=== PATIENT | female | born 1985 | race Caucasian/White ===

== ENCOUNTER → 2020-05-01 14:56 | Outpatient (BNVA) | payer OTHER, SELFPAY | PROVIDERS: PCP Internal Medicine; Visit Provider Advanced Practice Midwife | DX: Z30.42 Encounter for surveillance of injectable contraceptive (principal) | CPT/HCPCS: 96372; 99211; J1050 ==

== ENCOUNTER → 2020-07-24 15:09 | Outpatient (BNVA) | payer OTHER, SELFPAY | PROVIDERS: PCP Internal Medicine; Visit Provider Advanced Practice Midwife | DX: Z01.419 Encounter for gynecological examination (general) (routine) without abnormal findings (principal); Z30.42 Encounter for surveillance of injectable contraceptive; L70.9 Acne, unspecified | CPT/HCPCS: 96372 ==

== ENCOUNTER → 2020-10-09 15:04 | Outpatient (BNVA) | payer OTHER, SELFPAY | PROVIDERS: PCP Internal Medicine; Visit Provider Advanced Practice Midwife | DX: Z30.42 Encounter for surveillance of injectable contraceptive (principal) | CPT/HCPCS: 96372; 99211; J1050 ==

== ENCOUNTER → 2021-01-01 14:58 | Outpatient (BNVA) | payer OTHER, SELFPAY | PROVIDERS: PCP Internal Medicine; Visit Provider Advanced Practice Midwife | DX: Z30.42 Encounter for surveillance of injectable contraceptive (principal) | CPT/HCPCS: 96372; 99211 ==

== ENCOUNTER 2021-01-13 15:46 | Outpatient (REF) | payer OTHER, SELFPAY ==
[2021-01-13 16:21] LABS: COVID-19 Test Negative (Negative); IDNOW Serial# 08D9AD1C
== END 2021-01-13 15:47 | disposition home or self-care (01) ==
LOC: HO.LAB 15:46
PROVIDERS: PCP Internal Medicine; Visit Provider Internal Medicine
DX: Z20.822 Contact with and (suspected) exposure to COVID-19 (principal)
CPT/HCPCS: 36415; 87635; C9803

== ENCOUNTER 2021-03-17 14:49 | Outpatient (REF) | payer OTHER, SELFPAY ==
[2021-03-17 15:45] LABS: COVID-19 Test Negative (Negative)
== END 2021-03-17 14:50 | disposition home or self-care (01) ==
LOC: HO.LAB 14:49
PROVIDERS: PCP Internal Medicine; Visit Provider Internal Medicine
DX: Z20.822 Contact with and (suspected) exposure to COVID-19 (principal)
CPT/HCPCS: 36415; 87635; C9803

== ENCOUNTER → 2021-03-26 15:00 | Outpatient (BNVA) | payer OTHER, SELFPAY | PROVIDERS: PCP Internal Medicine; Visit Provider Advanced Practice Midwife | DX: Z30.42 Encounter for surveillance of injectable contraceptive (principal) | CPT/HCPCS: 96372; 99211 ==

== ENCOUNTER → 2021-06-11 14:56 | Outpatient (BNVA) | payer OTHER, SELFPAY | PROVIDERS: PCP Internal Medicine; Visit Provider Advanced Practice Midwife | DX: Z30.42 Encounter for surveillance of injectable contraceptive (principal) | CPT/HCPCS: 96372; 99211 ==

== ENCOUNTER → 2021-09-03 14:21 | Outpatient (BNVA) | payer OTHER, SELFPAY | PROVIDERS: PCP Internal Medicine; Visit Provider Advanced Practice Midwife | DX: Z30.42 Encounter for surveillance of injectable contraceptive (principal) | CPT/HCPCS: 96372 ==

== ENCOUNTER → 2021-12-03 13:00 | Outpatient (BNVA) | payer OTHER, SELFPAY | PROVIDERS: PCP Internal Medicine; Visit Provider Advanced Practice Midwife | DX: Z30.42 Encounter for surveillance of injectable contraceptive (principal) | CPT/HCPCS: 96372; 99211 ==

== ENCOUNTER 2022-02-25 10:30 | Outpatient (REF) | payer OTHER, SELFPAY ==
[2022-02-25 10:45] LABS: MANUAL DIFF FLAG NO
[2022-02-25 11:41] LABS: Basophils Percent Auto 0.7 % (0-2); Eosinophils Absolute Auto 0.3 X10*3/uL (0.0-0.4); Eosinophils Percent Auto 4.7 % (0-4); Hematocrit 44.1 % (37.0-47.0); Hemoglobin 14.2 g/dl (12.0-16.0); Imm Gran Abs Auto 0.02 X10*3/uL (0.00-0.03); Imm Gran Pct Auto 0.4 % (0.0-0.4); Lymphocytes Absolute Auto 1.7 X10*3/uL (1.2-4.9); Lymphocytes Percent Auto 30.7 % (20-40); Mean Corpuscular HGB Conc 32.2 g/dl (31.0-35.0); Mean Corpuscular Hemoglobin 29.3 pg (27.0-33.0); Mean Corpuscular Volume 90.9 fL (80.0-98.0); Mean Platelet Volume 9.8 fL (9.4-12.3); Monocytes Absolute Auto 0.5 X10*3/uL (0.1-1.2); Monocytes Percent Auto 9.2 % (2-11); Neutrophils Percent Auto 54.3 % (45-73); Platelet Count 288 X10*3/uL (160-400); Red Blood Count 4.85 X10*6/uL (4.20-5.50); Red Cell Distribution Width 13.2 % (11.0-16.0); White Blood Count 5.5 X10*3/uL (4.8-10.8)
[2022-02-25 12:36] LABS: Thyroid Stimulating Hormone 0.96 uIU/mL (0.32-4.0)
[2022-02-25 12:39] LABS: Alanine Aminotransferase 8 U/L (0-31); Albumin Level 4.1 g/dL (3.5-5.0); Alkaline Phosphatase 94 U/L (39-117); Aspartate Amino Transferase 17 U/L (5-31); Bilirubin Total 0.2 mg/dL (0.0-1.0); Blood Urea Nitrogen 12 mg/dL (9-16); Calcium 8.7 mg/dL (8.4-10.2); Cholesterol 174 mg/dL; Estimated Glomerular Filt Rate > 60; Glucose Fasting 85 mg/dL (60-99); HDL Cholesterol 39 mg/dL; LDL Cholesterol Calculated 124 mg/dl; Total Protein 6.6 g/dL (6.5-8.0); Triglycerides 55 mg/dL
[2022-02-25 12:50] LABS: Anion Gap 15 (12-20); Carbon Dioxide 15 mmol/L (22-29); Chloride 116 mmol/L (96-108); Potassium 4.3 mmol/L (3.3-5.1); Sodium 142 mmol/L (135-145)
== END 2022-02-25 10:31 | disposition home or self-care (01) ==
LOC: HO.LAB 10:30
PROVIDERS: PCP Internal Medicine; Visit Provider Internal Medicine
DX: Z30.42 Encounter for surveillance of injectable contraceptive (principal); E03.9 Hypothyroidism, unspecified; E78.5 Hyperlipidemia, unspecified; I10 Essential (primary) hypertension
CPT/HCPCS: 36415; 80053; 80061; 84443; 85025; 96372; 99211

== ENCOUNTER → 2022-05-24 13:06 | Outpatient (BNVA) | payer OTHER, SELFPAY | PROVIDERS: PCP Internal Medicine; Visit Provider Advanced Practice Midwife | DX: Z30.42 Encounter for surveillance of injectable contraceptive (principal) | CPT/HCPCS: 96372; 99211 ==

== ENCOUNTER → 2022-08-12 13:03 | Outpatient (BNVA) | payer OTHER, SELFPAY | PROVIDERS: PCP Internal Medicine; Visit Provider Advanced Practice Midwife | DX: Z30.42 Encounter for surveillance of injectable contraceptive (principal) | CPT/HCPCS: 96372; 99211 ==

== ENCOUNTER → 2022-09-06 15:07 | Outpatient (BNVA) | payer OTHER, SELFPAY | PROVIDERS: PCP Internal Medicine; Visit Provider Advanced Practice Midwife | DX: Z30.42 Encounter for surveillance of injectable contraceptive (principal); Z30.09 Encounter for other general counseling and advice on contraception; Z01.419 Encounter for gynecological examination (general) (routine) without abnormal findings | CPT/HCPCS: 99212 ==

== ENCOUNTER → 2022-10-28 13:44 | Outpatient (BNVA) | payer OTHER, SELFPAY | PROVIDERS: PCP Internal Medicine; Visit Provider Advanced Practice Midwife | DX: Z30.42 Encounter for surveillance of injectable contraceptive (principal) | CPT/HCPCS: 96372; 99211 ==

== ENCOUNTER 2023-01-18 12:57 | Outpatient (AMB) | payer OTHER, SELFPAY ==
[2023-01-18 13:10] VITALS: BMI 29.4
--- NOTE | 2023-01-18 13:10 | AM.OFFVISNUR ---
Intake Vital Signs 01/18/23 13:10 Height 5 ft 2 in Weight 72.802 kg BMI 29.4 Intake Visit Reasons: DEPO Allergies Seasonal Allergies Allergy (Mild, Verified 09/06/22 15:12) Sniffles. risperidone [From Risperdal] Adverse Reaction (Mild, Verified 09/06/22 15:12) CHANGES HER PERSONALITY Nursing Note car is here with her mother today for her scheduled Depo-Provera inj. Mom reports Car gets acne breakout few wks prior to her Depo-Provera shot. No other problems or concerns. Follow up in 12 wks. Office Procedures Depo Questionnaire If YES to any of the following questions, please consult a provider. Date of last injection: 10/28/22 Date of last gynecology exam: 09/11/22 Menstrual pattern since last injection has been: Not Applicable Irregular bleeding?: No Breast lumps or other breast changes?: No Changes in weight or appetite?: No Depression or changes in mood?: No Abnormal hair growth or loss?: No Skin problems (rash, acne, discoloration)?: Yes (Pt gets acne only when Depo is due.) Pain at the injection site?: No Headaches?: No Nervousness?: No Abdominal pain or cramping?: No Dizziness or nausea?: No Fatigue or weakness?: No Decrease in sexual drive?: Not Applicable Chest pain or shortness of breath?: No Swelling in arms or legs?: No Form completed by?: Arabella Bartholomew LPN Office Meds Depo-Provera Performing Provider: Mala Taylor CNM Administered by: Lizzeth Bartholomew LPN on 01/18/23 13:12 Dose Route Admin Location Lot Number Expiration Date [employer] Architect Consultant 150 mg IM rt. deltoid [id number] 02/18/25 00578-216-09 [facility] Coding Level of Care Code Established Pt Est Pt Level 1 (55202) Patient Type Established History Problem Focused Exam Problem Focused Medical Decision Making Straight Forward Diagnoses Time Spent (min) 20 Assessment & Plan Assessment & Plan Orders: Orders AMB Medroxyprogesterone Injection Patient Supplied Today Z30.42 - Encounter for surveillance of injectable contraceptive
== END 2023-01-18 13:08 | disposition home or self-care (01) ==
PROVIDERS: PCP Internal Medicine; Visit Provider Advanced Practice Midwife
DX: Z30.42 Encounter for surveillance of injectable contraceptive (principal)

== ENCOUNTER → 2023-01-18 12:57 | Outpatient (BNVA) | payer OTHER, SELFPAY | PROVIDERS: PCP Internal Medicine; Visit Provider Advanced Practice Midwife | DX: Z30.42 Encounter for surveillance of injectable contraceptive (principal) | CPT/HCPCS: 96372; 99211; J1050 ==

== ENCOUNTER 2023-04-12 11:07 | Outpatient (AMB) | payer OTHER, SELFPAY ==
[2023-04-12 11:11] VITALS: BMI 29.7
--- NOTE | 2023-04-12 11:11 | AM.OFFVISNUR ---
Intake Vital Signs 04/12/23 11:11 Height 5 ft 2 in Weight 73.624 kg BMI 29.7 Intake Visit Reasons: DEPO Allergies Seasonal Allergies Allergy (Mild, Verified 09/06/22 15:12) Sniffles. risperidone [From Risperdal] Adverse Reaction (Mild, Verified 09/06/22 15:12) CHANGES HER PERSONALITY Nursing Note Agata is here with her father for her Depo-Provera inj as scheduled. Pt is non-verbal Autistic. Her father reports Agata has been breaking out on her face recently and they are not sure if Depo-Provera related. Message will be sent to provider regarding this issue and pts parents will be notified. Office Procedures Depo Questionnaire If YES to any of the following questions, please consult a provider. Date of last injection: 01/18/23 Date of last gynecology exam: 09/09/22 Menstrual pattern since last injection has been: Not Applicable Irregular bleeding?: No Breast lumps or other breast changes?: No Changes in weight or appetite?: No Depression or changes in mood?: No Abnormal hair growth or loss?: No Skin problems (rash, acne, discoloration)?: Yes (more acne recently. Her father not sure if related to Depo-Provera.) Pain at the injection site?: No Headaches?: No Nervousness?: No Abdominal pain or cramping?: No Dizziness or nausea?: No Fatigue or weakness?: No Decrease in sexual drive?: No Chest pain or shortness of breath?: No Swelling in arms or legs?: No Any other problems or concerns?: no Form completed by?: Arabella Bartholomew LPN Office Meds Depo-Provera 150 mg/mL intramuscular syringe Performing Provider: Mala Taylor CNM Performing Location: [facility] – [place] [facility] Administered by: Lizzeth Bartholomew LPN on 04/12/23 11:12 Dose Route Admin Location Dispensed Lot Number Expiration Date [facility] Supervisor Tower 150 mg IM rt. deltoid 1 mL [id number] 03/21/25 51445-616-62 [facility] Coding Level of Care Code Established Pt Est Pt Level 1 (32313) Patient Type Established History Problem Focused Exam Problem Focused Medical Decision Making Straight Forward Time Spent (min) 20 Assessment & Plan Assessment & Plan Orders: Orders AMB Medroxyprogesterone Injection Patient Supplied Today Z30.42 - Encounter for surveillance of injectable contraceptive
== END 2023-04-12 11:08 | disposition home or self-care (01) ==
LOC: HO.HWS 11:07
PROVIDERS: PCP Internal Medicine; Visit Provider Advanced Practice Midwife
DX: Z30.42 Encounter for surveillance of injectable contraceptive (principal)

== ENCOUNTER → 2023-04-12 11:07 | Outpatient (BNVA) | payer OTHER, SELFPAY | PROVIDERS: PCP Internal Medicine; Visit Provider Advanced Practice Midwife | DX: Z30.42 Encounter for surveillance of injectable contraceptive (principal) | CPT/HCPCS: 96372; 99211; J1050 ==

== ENCOUNTER 2023-04-28 13:38 | Outpatient (AMB) | payer OTHER, SELFPAY ==
[2023-04-28 13:40] VITALS: BP 136/70; PULSE 65; O2SAT 97; BMI 29.3
--- NOTE | 2023-04-28 13:40 | MHC.PC.OV ---
Vital Signs 04/28/23 13:40 Height 5 ft 2 in Weight 160 lb BMI 29.3 BP 136/70 Blood Pressure Location Lt brachial Position Sitting Pulse 65 Pulse Source Pulse Oximeter Pulse Oximetry (%) 97 Oxygen Delivery Method Room Air Intake Visit Reasons: Physical Exam+ needs PHQ9 +THRIVE Land Appraiser Required: No Tripe Finisher: Not Required per policy Accompanied by: Self / Same As Patient Allergies Seasonal Allergies Allergy (Mild, Verified 04/28/23 13:40) Sniffles. risperidone [From Risperdal] Adverse Reaction (Mild, Verified 04/28/23 13:40) CHANGES HER PERSONALITY Medication List - Last Reconciled 04/28/23 by Mingo Palmer MD aspirin (Adult Aspirin Regimen) 81 mg PO DAILY fluticasone propionate 50 mcg/actuation 1 spray intranasal DAILY lamotrigine 200 mg PO DAILY levothyroxine 25 mcg PO DAILY lorazepam 0.5 mg PO BID PRN lorazepam mg PO BEDTIME PRN medroxyprogesterone (Depo-Provera) 150 mg IM [id number] miscellaneous medical supply 1 ea miscellaneous DAILY quetiapine mg PO topiramate 1 tablet in the AM and 2 tabs in the PM Tobacco use date assessed: 04/28/23 Dental Screening Dental Screen Date: 04/28/23 Did you have a dental visit in the last 12 months?: No Did you have a dental problem in the last 6 months where you did not have access to dental care?: No Was dental information given to patient?: Patient has dentist HPI Physical Exam+ needs PHQ9 +THRIVE HPI Details severe autism; cared for at home [facility] Medical History Surveillance for Depo-Provera contraception Factor V Leiden mutation Allergic rhinitis Seizure disorder Hypothyroidism Autism Surgical History S/P tooth extraction Family History Father No problems noted. Mother No problems noted. Maternal Grandmother Hypertension Maternal Grandfather Diabetes Paternal Uncle Cancer Maternal Grandmother Breast cancer Social History Housing: House Alcohol intake: never Patient Tobacco Use Status: Never used Tobacco e-Cigarette/Vaping Use: Never Used Second Hand Smoke Exposure: No service: No Current occupational status: disabled Cognitive needs: No Hearing needs: No Vision needs: No Female Reproductive History Menstrual Age of Menarche: 11 Questionnaire PHQ-9 Over the last 2 weeks, how often have you been bothered by any of the following problems? 1. Little interest or pleasure in doing things: not at all 2. Feeling down, depressed, or hopeless: not at all 3. Trouble falling or staying asleep, or sleeping too much: not at all 4. Feeling tired or having little energy: not at all 5. Poor appetite or overeating: not at all 6. Feeling bad about yourself - or that you are a failure or have let yourself or your family down: not at all 7. Trouble concentrating on things, such as reading the newspaper or watching television: not at all 8. Moving or speaking so slowly that other people could have noticed. Or the opposite - being so fidgety or restless that you have been moving around a lot more than usual: not at all 9. Thoughts that you would be better off or of hurting yourself in some way: not at all Total score: 0 Depression Screening Interpretation: Negative Depression Screening Done: Yes 82569 - PHQ-9 Billing: Yes Source: Developed by Drs. Valdo Dia, Cinthya Berman, Marc Chavez and colleagues, with an educational clay from [employer]. Thrive Questionnaire Date Thrive assessed: 04/28/23 I am a: Patient What is your living situation today?: I have a steady place to live Within the past 12 months, did the food you bought not last and you didn't have the money to get more?: Never true Within the past 12 months, did you worry whether your food would run out before you got money to buy more?: Never true Do you have trouble paying for medicines?: No Do you have trouble getting transportation to medical appointments?: No Do you have trouble paying your heating and electricity bill?: No Do you have trouble taking care of your child, family member or friend?: No Do you have trouble with day-to-day activities such as bathing, preparing meals, shopping, managing finances, etc.?: No Are you currently unemployed and looking for a job?: No Are you interested in more education?: No Please select the resources that you would like help with: None AUDIT C Alcohol Use Questionnaire (AUDIT-C) 1. How often do you have a drink containing alcohol?: Never Total Score: 0 Score Reviewed/Action Taken: Yes MERYL-7 AMB Questionnaire MERYL-7 Date MERYL - 7 assessed: 04/28/23 Feeling nervous, anxious, or on edge: 0 = Not at all Not being able to stop or control worryin = Not at all Worrying too much about different things: 0 = Not at all Trouble relaxin = Not at all Being so restless that it is hard to sit still: 0 = Not at all Becoming easily annoyed or irritable: 0 = Not at all Feeling afraid as if something awful might happen: 0 = Not at all Total MERYL-7 score (0-4 normal; 5-9 mild; 10-14 moderate; 15-21 severe): 0 Source: Developed by Drs. Valdo Dia, Cinthya Berman, Marc Chavez and colleagues, with an educational clay from [employer]. MERYL-7 Assessment Billing MERYL-7 Assessment Tool: MERYL-7 Assessment 92494 Review of Systems Const Denies chills, Denies fatigue, Denies headache(s) and Denies weight loss Eyes Denies change in vision, Denies diplopia and Denies eye pain ENT Denies vertigo, Denies dizziness, Denies headache(s) and Denies nasal discharge Card Denies chest pain, Denies rapid heart rate and Denies dyspnea on exertion Resp Denies chest congestion, Denies cough, Denies pain with cough and Denies dyspnea on exertion GI Denies abdominal pain, Denies hematochezia and Denies change in bowel habits Musc Denies myalgias, Denies arthralgias and Denies joint swelling Skin/Breast Denies lesions and Denies unusual bruising Neuro Denies vertigo, Denies dizziness, Denies headache(s) and Denies focal weakness Endo Denies fatigue Physical exam (Primary Care) Vital Signs: Last Vital Signs Pulse 65 04/28/23 13:40 BP 136/70 04/28/23 13:40 Pulse Ox 97 04/28/23 13:40 Oxygen Delivery Method Room Air 04/28/23 13:40 BMI result Body Mass Index 29.3 Tobacco/Smoking Status: Tobacco use Status Tobacco use date assessed 04/28/23 04/28/23 13:48 Patient Tobacco Use Status Never used Tobacco 04/28/23 13:48 e-Cigarette/Vaping Use Never Used 04/28/23 13:48 PHQ-9: PHQ-9 Score PHQ-9: Total score 0 04/28/23 13:49 Depression Screening Interpretation: Negative Thrive Assessment: Date of Thrive Assessment Date Thrive assessed 04/28/23 04/28/23 13:48 Const General: cooperative, healthy appearing and no acute distress Orientation/consciousness: oriented to person, oriented to place and oriented to time HENMT Head: Yes normal to inspection, Yes normocephalic and Yes atraumatic Mouth: Normal oral and palatal mucosa present and tongue normal Throat: Yes posterior oropharynx normal and Yes uvula midline Eyes General: appearance normal, both eyes and all related structures Neck Neck: Yes normal visual inspection, Yes full ROM and Yes no lymphadenopathy Thyroid: Thyroid normal Carotids: normal carotid upstroke Chest Chest palpation & inspection: normal inspection of the chest Resp Effort & Inspection: normal respiratory effort and able to speak in complete sentences Auscultation: clear to auscultation bilaterally Cardio Jugular venous distension: no JVD Palpation: normal PMI Rate: regular rate Rhythm: regular rhythm Heart sounds: S1 normal heart sound present and S2 normal heart sound present GI Inspection: Yes normal to inspection Palpation (GI): Soft to palpation and No hepatosplenomegaly present Auscultation: normal bowel sounds General: Yes no CVA tenderness Back/Spine/Pelvis Back: no CVA tenderness Skin General skin exam: no rashes or lesions noted Neuro General: oriented to person, oriented to place and oriented to time Extrem General: Yes normal to inspection and Yes full ROM Assessment and Plan Assessment & Plan (1) Autism: Code(s): F84.0 - Autistic disorder Plan: labs (2) Physical exam: Code(s): Z00.00 - Encounter for general adult medical examination without abnormal findings Plan: stable Orders: Orders Thyroid Stimulating Hormone Today E03.9 - Hypothyroidism, unspecified Complete Blood Count Auto Diff Today D64.9 - Anemia, unspecified Lipid Panel Today E78.5 - Hyperlipidemia, unspecified Comprehensive [place]. Panel Fast Today N28.9 - Disorder of kidney and ureter, unspecified Medications: New zkxjifff-eqgskd-JZ-thonzonium 3.3-3-10-0.5 mg/mL (Cortisporin-TC) 1 appl otic (ears) Q4H 10 mL 1RF metronidazole 1% 1 appl topical DAILY 60 grams 1RF Coding Level of Care Code Est Pt Prev Care 18-39y(88632) Diagnoses Autism F84.0 Physical exam Z00.00 Additional Codes MERYL-7 Assessment Billing - MERYL-7 Assessment Tool: MERYL-7 Assessment 19018 ([id number])
== END 2023-04-28 14:04 | disposition home or self-care (01) ==
PROVIDERS: PCP Internal Medicine; Visit Provider Internal Medicine
DX: Z00.00 Encounter for general adult medical examination without abnormal findings (principal); F84.0 Autistic disorder
CPT/HCPCS: 99395

== ENCOUNTER 2023-07-03 12:56 | Outpatient (AMB) | payer OTHER, SELFPAY ==
[2023-07-03 13:11] VITALS: BMI 29.8
--- NOTE | 2023-07-03 13:11 | AM.OFFVISNUR ---
Intake Vital Signs 07/03/23 13:11 Height 5 ft 2 in Weight 73.936 kg BMI 29.8 Intake Visit Reasons: DEPO Allergies Seasonal Allergies Allergy (Mild, Verified 04/28/23 13:40) Sniffles. risperidone [From Risperdal] Adverse Reaction (Mild, Verified 04/28/23 13:40) CHANGES HER PERSONALITY Nursing Note Agata is here with her mother today for her Depo-provera inj. Her Mom reports her to be ''cranky today'' and feels like she gets this way when her Depo_Provera shot is due. Pt is Autistic.. Office Procedures Depo Questionnaire If YES to any of the following questions, please consult a provider. Date of last injection: 04/12/23 Date of last gynecology exam: 09/09/22 Menstrual pattern since last injection has been: Not Applicable Irregular bleeding?: No Breast lumps or other breast changes?: No Changes in weight or appetite?: Yes Depression or changes in mood?: No Abnormal hair growth or loss?: No Skin problems (rash, acne, discoloration)?: Yes Pain at the injection site?: No Headaches?: No Nervousness?: No Abdominal pain or cramping?: No Dizziness or nausea?: No Fatigue or weakness?: No Decrease in sexual drive?: No Chest pain or shortness of breath?: No Swelling in arms or legs?: No Form completed by?: Arabella Bartholomew LPN Office Meds Depo-Provera 150 mg/mL intramuscular syringe Performing Provider: Mala Taylor CNM Performing Location: [facility] – [place] [facility] Administered by: Lizzeth Bartholomew LPN on 07/03/23 13:11 Dose Route Admin Location Dispensed Lot Number Expiration Date [facility] Singing Messenger 150 mg IM lt. deltoid 1 mL [id number] 08/19/25 66850-937-35 [facility] Coding Level of Care Code Established Pt Est Pt Level 1 (61470) Patient Type Established History Problem Focused Exam Problem Focused Medical Decision Making Straight Forward Time Spent (min) 15 Assessment & Plan Assessment & Plan Orders: Orders AMB Medroxyprogesterone Injection Patient Supplied Today Z30.42 - Encounter for surveillance of injectable contraceptive
== END 2023-07-03 13:07 | disposition home or self-care (01) ==
LOC: HO.HWS 12:56
PROVIDERS: PCP Internal Medicine; Visit Provider Advanced Practice Midwife
DX: Z30.42 Encounter for surveillance of injectable contraceptive (principal)

== ENCOUNTER → 2023-07-03 12:56 | Outpatient (BNVA) | payer OTHER, SELFPAY | PROVIDERS: PCP Internal Medicine; Visit Provider Advanced Practice Midwife | DX: Z30.42 Encounter for surveillance of injectable contraceptive (principal) | CPT/HCPCS: 96372; 99211; J1050 ==

== ENCOUNTER 2023-09-26 13:31 | Outpatient (AMB) | payer OTHER, SELFPAY ==
--- NOTE | 2023-09-26 13:35 | MHC.OFFVIS ---
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 risperidone [From Risperdal] Adverse Reaction (Mild, Verified 04/28/23 13:40) CHANGES HER PERSONALITY Is last menstrual period known: Yes HPI Comments Details: She is a premenopausal woman presenting for annual examination. Presents with her mom, Lupe. Patient has a diagnosis of autism and is nonverbal and unable to communicate her needs and lacks understanding and comprehension of conversation. Doing well with concerns: Patient is an on Depo-Provera for years, mom has concerns of worries for risks for and also that Agata decompensates when she has her cycle and does not wear clothing and is unable to keep a pad on due to her discomforts with menstrual blood. Reviewed risk factors for Depo-Provera use with Lupe, she reports there is a history of the father with factor Leiden 5, and that Agata has the risk factors for it. She has not had a DVT or pulmonary embolus. Lupe reports she provides healthy meals, and admits Arauz's is picky, and stays active with exercise by walking. No bleeding with Depo use. Denies family history of ovarian or colon cancer. FH MGM breast cancer. [facility] Medical History Surveillance for Depo-Provera contraception Factor V Leiden mutation Allergic rhinitis Seizure disorder Hypothyroidism Autism Surgical History S/P tooth extraction Family History (Updated 09/26/23 @ 13:40 by HENRIQUE Salcido) Father Factor 5 Leiden mutation, heterozygous Mother No problems noted. Maternal Grandmother Hypertension Maternal Grandfather Diabetes Paternal Uncle Cancer Maternal Grandmother Breast cancer Social History Housing: House Alcohol intake: never Patient Tobacco Use Status: Never used Tobacco e-Cigarette/Vaping Use: Never Used Second Hand Smoke Exposure: No service: No Current occupational status: disabled Cognitive needs: No Hearing needs: No Vision needs: No Female Reproductive History Menstrual Age of Menarche: 11 control method: progesterone injection (Depo 07/03/23) Review of Systems Const All systems reviewed & are unremarkable except as noted in HPI and below Endo Reports no additional complaints Physical Exam Vital Signs: Last Vital Signs BP 110/70 09/26/23 13:36 BMI result Body Mass Index 28.5 Const Other: Patient does not have the capacity to cooperate for in exam today and while sitting on the senior clinical project manager table jumped off. General: healthy appearing and no acute distress Limitations: other limitations (Nonverbal) Skin Other: Facial acne Psych Appearance: well kempt Speech and movement: Psychomotor agitation in speech present (Rocking back and forth) Office Procedures Depo Questionnaire If YES to any of the following questions, please consult a provider. Date of last injection: 07/03/23 Date of last gynecology exam: 09/26/23 Menstrual pattern since last injection has been: Not Applicable Irregular bleeding?: No Breast lumps or other breast changes?: No Changes in weight or appetite?: No Depression or changes in mood?: No Abnormal hair growth or loss?: No Skin problems (rash, acne, discoloration)?: No Pain at the injection site?: No Headaches?: No Nervousness?: No Abdominal pain or cramping?: No Dizziness or nausea?: No Fatigue or weakness?: No Decrease in sexual drive?: No Chest pain or shortness of breath?: No Swelling in arms or legs?: No Form completed by?: Arabella Bartholomew LPN Office Meds Depo-Provera 150 mg/mL intramuscular syringe Performing Provider: Mala Taylor CNM Performing Location: [facility] – [place] [facility] Administered by: Lizzeth Bartholomew LPN on 09/26/23 14:05 Dose Route Admin Location Dispensed Lot Number Expiration Date [facility] Intelligence Director 150 mg IM rt. deltoid 1 mL [id number] 08/19/25 57046-296-97 [facility] Assessment & Plan Assessment & Plan (1) Surveillance for Depo-Provera contraception: Code(s): Z30.42 - Encounter for surveillance of injectable contraceptive Category: Medical (2) Encounter for well woman exam with routine gynecological exam: Code(s): Z01.419 - Encounter for gynecological examination (general) (routine) without abnormal findings (3) Factor 5 Leiden mutation, heterozygous: Code(s): D68.51 - Activated protein C resistance (4) control counseling: Code(s): Z30.09 - Encounter for other general counseling and advice on contraception Plan Discussed: Discontinuing Depo-Provera due to the increased risk for deep vein thrombosis and pulmonary embolus. Risks benefits reviewed. Advised consult for hysterectomy or other options including a Mirena IUD at [facility] both would be with anesthesia, Lupe is very agreeable to the plan and wished this was done previously. [facility] records reviewed 2010 consult: Was consideration for NovaSure in and/or hysterectomy at that time was deemed not the 1st option so they went with Depo-Provera. All of her questions and concerns were addressed to the best of my ability. She is agreeable to the plan of care. This note is constructed using voice recognition software. While every effort has been made to ensure accuracy, floating operator errors may have been included. Orders: Orders AMB Medroxyprogesterone Injection Patient Supplied Today Z30.42 - Encounter for surveillance of injectable contraceptive Referrals [facility] Referral Z30.9 - Encounter for contraceptive management, unspecified Medications: Discontinued medroxyprogesterone (Depo-Provera) Discontinued Reason: No Longer Medically Relevant 150 mg IM [id number] 1 mL 3RF Coding Level of Care Code Est Pt Prev Care 18-39y(29956) Diagnoses Surveillance for Depo-Provera contraception Z30.42 Encounter for well woman exam with routine gynecological exam Z01.419 Factor 5 Leiden mutation, heterozygous D68.51 control counseling Z30.09
[2023-09-26 13:36] VITALS: BP 110/70; BMI 28.5
== END 2023-09-26 15:07 | disposition home or self-care (01) ==
LOC: HO.HWS 13:31
PROVIDERS: PCP Internal Medicine; Visit Provider Advanced Practice Midwife
DX: Z30.42 Encounter for surveillance of injectable contraceptive (principal); Z01.419 Encounter for gynecological examination (general) (routine) without abnormal findings; D68.51 Activated protein C resistance; Z30.09 Encounter for other general counseling and advice on contraception
CPT/HCPCS: 99395

== ENCOUNTER → 2023-09-26 13:31 | Outpatient (BNVA) | payer OTHER, SELFPAY | PROVIDERS: PCP Internal Medicine; Visit Provider Advanced Practice Midwife | DX: Z30.42 Encounter for surveillance of injectable contraceptive (principal); Z01.419 Encounter for gynecological examination (general) (routine) without abnormal findings; D68.51 Activated protein C resistance | CPT/HCPCS: 96372; 99395; J1050 ==

== ENCOUNTER 2023-11-30 08:01 | Outpatient (AMB) | payer OTHER, SELFPAY ==
--- NOTE | 2023-11-30 08:02 | MHC.OFFVIS ---
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 risperidone [From Risperdal] Adverse Reaction (Mild, Verified 11/30/23 08:02) CHANGES HER PERSONALITY Is last menstrual period known: Yes HPI Comments Details: Tele jay visit 08:11-08:22. I spent 10 minutes speaking with the patient on the phone plus an additional 5 minutes reviewing the chart and 5 minutes updating the medical record for a total of 20 minutes. I spoke with Lupe, the patient's mother, her father was also present via phone to discuss: Contraceptive options for menstrual suppression, following consult at [facility] for discussion on the option of a hysterectomy. Due to Tinkerbell's (Agata's) sensory issues she would not tolerate a menstrual cycle experience. She has a history of autism, seizure disorder, factor 5 mutation, nonverbal, and sensory disorder. Reviewed parents consult discussion and plan of care, their decision is that a hysterectomy is not the best option for their daughter. Her parents chose to continue with Depo-Provera, and are aware of the risks for deep vein thrombosis with its use. They have explored all options and feel comfortable proceeding with Depo Provera use. [facility] Medical History Surveillance for Depo-Provera contraception Factor V Leiden mutation Allergic rhinitis Seizure disorder Hypothyroidism Autism Surgical History S/P tooth extraction Family History (Updated 09/26/23 @ 13:40 by HENRIQUE Salcido) Father Factor 5 Leiden mutation, heterozygous Mother No problems noted. Maternal Grandmother Hypertension Maternal Grandfather Diabetes Paternal Uncle Cancer Maternal Grandmother Breast cancer Social History Housing: House Alcohol intake: never Patient Tobacco Use Status: Never used Tobacco e-Cigarette/Vaping Use: Never Used Second Hand Smoke Exposure: No service: No Current occupational status: disabled Cognitive needs: No Hearing needs: No Vision needs: No Female Reproductive History Menstrual Age of Menarche: 11 Review of Systems Const All systems reviewed & are unremarkable except as noted in HPI and below Endo Reports no additional complaints Physical Exam Const General: cooperative, healthy appearing and no acute distress Psych Appearance: well kempt Attitude: cooperative Thought process: Normal thought process present Telehealth Telehealth Telehealth Platform: BrightRoll Location of provider rendering services: practice address Location of patient: address on file Patient Identification confirmed using: Name, : Yes Telehealth method: video Patient verbally consented to treatment: Yes Patient verbally consented to billing insurance company: Yes Patient informed of any privacy concerns related to visit: Yes Assessment & Plan Assessment & Plan (1) Autism: Code(s): F84.0 - Autistic disorder Category: Medical (2) Contraceptive management: Code(s): Z30.9 - Encounter for contraceptive management, unspecified Qualifiers: Contraceptive encounter type: surveillance Plan Discussed: After thorough conversation reviewing her options, risks/benefits of Depo-Provera including risk of deep vein thrombosis. Parents decision is to continue with Depo-Provera use as their best choice option for their daughters health benefits and safety concerns. Reviewed warning signs of a deep vein thrombosis, pulmonary embolus and when to seek emergency evaluation at the ED. Self-breast awareness as mom is tetryl screen operator and provides physical care. Advised to report any changes or concerns. Next Depo due December 25. Continue with a yearly medical reviews. All of her questions and concerns were addressed to the best of my ability and shared decision making. She is agreeable to the plan of care. This note is constructed using voice recognition software. While every effort has been made to ensure accuracy, superintendent geophysical laboratory errors may have been included. Medications: New medroxyprogesterone (Depo-Provera) 150 mg IM [id number] 1 mL 4RF 90 days Coding Level of Care Code Tele Est Pt Level 3 (96405) Diagnoses Autism F84.0 Contraceptive management Z30.9 Contraceptive encounter type: surveillance
== END 2023-11-30 09:26 | disposition home or self-care (01) ==
LOC: HO.HWS 08:01
PROVIDERS: PCP Internal Medicine; Visit Provider Advanced Practice Midwife
DX: F84.0 Autistic disorder (principal); Z30.9 Encounter for contraceptive management, unspecified
CPT/HCPCS: 99213

== ENCOUNTER → 2023-11-30 08:01 | Outpatient (BNVA) | payer OTHER, SELFPAY | PROVIDERS: PCP Internal Medicine; Visit Provider Advanced Practice Midwife ==

== ENCOUNTER 2023-12-25 09:01 | Outpatient (AMB) | payer OTHER, SELFPAY ==
[2023-12-25 09:11] VITALS: BMI 28.1
--- NOTE | 2023-12-25 09:11 | AM.OFFVISNUR ---
Vital Signs 12/25/23 09:11 Height 5 ft 2 in Weight 69.626 kg BMI 28.1 Intake Visit Reasons: Depo Allergies Seasonal Allergies Allergy (Mild, Verified 11/30/23 08:02) Sniffles. risperidone [From Risperdal] Adverse Reaction (Mild, Verified 11/30/23 08:02) CHANGES HER PERSONALITY Nursing Note car is here today with her father, for her scheduled Depo-Provera inj. Pt is non-verbal, and father denies any problems or concerns at this time. Pt tolerated inj well. Follow up in 12 wks for next inj. Office Procedures Depo Questionnaire If YES to any of the following questions, please consult a provider. Date of last injection: 09/26/23 Date of last gynecology exam: 09/26/23 Menstrual pattern since last injection has been: Not Applicable Irregular bleeding?: No Breast lumps or other breast changes?: No Changes in weight or appetite?: No Depression or changes in mood?: No Abnormal hair growth or loss?: No Skin problems (rash, acne, discoloration)?: No Pain at the injection site?: No Headaches?: No Nervousness?: No Abdominal pain or cramping?: No Dizziness or nausea?: No Fatigue or weakness?: No Decrease in sexual drive?: No Chest pain or shortness of breath?: No Swelling in arms or legs?: No Any other problems or concerns?: none voiced by pts father. Form completed by?: Arabella Bartholomew LPN Office Meds Depo-Provera 150 mg/mL intramuscular syringe Performing Provider: Mala Taylor CNM Performing Location: [facility] Administered by: Lizzeth Bartholomew LPN on 12/25/23 09:12 Dose Route Admin Location Dispensed Lot Number Expiration Date [facility] Strategic Manager 150 mg IM lt deltoid 1 mL [id number] 03/21/25 25522-890-33 [employer] Assessment & Plan Assessment & Plan Orders: Orders AMB Medroxyprogesterone Injection Patient Supplied Today Z30.42 - Encounter for surveillance of injectable contraceptive Medications: New Depo-Provera (medroxyprogesterone) 150 mg IM ONCE 1 mL 0RF NS Z30.42 - Encounter for surveillance of injectable contraceptive
== END 2023-12-25 09:10 | disposition home or self-care (01) ==
LOC: HO.HWS 09:01
PROVIDERS: PCP Internal Medicine; Visit Provider Advanced Practice Midwife
DX: Z30.42 Encounter for surveillance of injectable contraceptive (principal)

== ENCOUNTER → 2023-12-25 09:01 | Outpatient (BNVA) | payer OTHER, SELFPAY | PROVIDERS: PCP Internal Medicine; Visit Provider Advanced Practice Midwife | DX: Z30.42 Encounter for surveillance of injectable contraceptive (principal) | CPT/HCPCS: 96372; 99211; J1050 ==

== ENCOUNTER 2024-03-11 10:46 | Outpatient (AMB) | payer OTHER, SELFPAY ==
--- NOTE | 2024-03-11 11:08 | AM.OFFVISNUR ---
Vital Signs 03/11/24 11:09 Height 5 ft 2 in Weight 71.668 kg BMI 28.9 Intake Visit Reasons: depo Allergies Seasonal Allergies Allergy (Mild, Verified 11/30/23 08:02) Sniffles. risperidone [From Risperdal] Adverse Reaction (Mild, Verified 11/30/23 08:02) CHANGES HER PERSONALITY Nursing Note Agata is here today with her Mother for her scheduled Depo-Provera inj. Pt is non -verbal, and Mom denies any problems or concerns. Pt tolerated inj well. follow up in 12 weeks. Office Procedures Depo Questionnaire If YES to any of the following questions, please consult a provider. Date of last injection: 12/24/23 Date of last gynecology exam: 09/26/23 Menstrual pattern since last injection has been: Not Applicable Irregular bleeding?: No Breast lumps or other breast changes?: No Changes in weight or appetite?: No Depression or changes in mood?: No Abnormal hair growth or loss?: No Skin problems (rash, acne, discoloration)?: No Pain at the injection site?: No Headaches?: No Nervousness?: No Abdominal pain or cramping?: No Dizziness or nausea?: No Fatigue or weakness?: No Decrease in sexual drive?: No Chest pain or shortness of breath?: No Swelling in arms or legs?: No Form completed by?: Arabella Coburn i, LPN Office Meds Depo-Provera 150 mg/mL intramuscular syringe Performing Provider: Mala Taylor CNM Performing Location: [facility] Administered by: Lizzeth Bartholomew LPN on 03/11/24 11:09 Dose Route Admin Location Dispensed Lot Number Expiration Date [facility] Cafe Server 150 mg IM rt. dedltoid 1 mL [id number] 10/19/25 33717-975-79 [place] Assessment & Plan Assessment & Plan Orders: Orders AMB Medroxyprogesterone Injection Patient Supplied Today Z30.42 - Encounter for surveillance of injectable contraceptive Medications: New Depo-Provera (medroxyprogesterone) 150 mg IM ONCE 1 mL 0RF NS Z30.42 - Encounter for surveillance of injectable contraceptive
[2024-03-11 11:09] VITALS: BMI 28.9
== END 2024-03-11 10:59 | disposition home or self-care (01) ==
LOC: HO.HWS 10:46
PROVIDERS: PCP Internal Medicine; Visit Provider Advanced Practice Midwife
DX: Z30.42 Encounter for surveillance of injectable contraceptive (principal)

== ENCOUNTER → 2024-03-11 10:46 | Outpatient (BNVA) | payer OTHER, SELFPAY | PROVIDERS: PCP Internal Medicine; Visit Provider Advanced Practice Midwife | DX: Z30.42 Encounter for surveillance of injectable contraceptive (principal) | CPT/HCPCS: 96372; 99211; J1050 ==

== ENCOUNTER 2024-04-30 12:54 | Outpatient (AMB) | payer OTHER, SELFPAY ==
[2024-04-30 12:57] VITALS: BP 124/78; PULSE 91; O2SAT 98; BMI 29.1
--- NOTE | 2024-04-30 12:57 | A.OFFPC_ITS ---
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 risperidone [From Risperdal] Adverse Reaction (Mild, Verified 04/30/24 12:57) CHANGES HER PERSONALITY Medication List - Last Reconciled 04/30/24 by Mingo Palmer MD aspirin (Adult Aspirin Regimen) 81 mg PO DAILY [commode As directed] fluticasone propionate 50 mcg/actuation 1 spray intranasal DAILY [Guardian Helmet As directed] lamotrigine 200 mg PO DAILY levothyroxine 25 mcg PO DAILY lorazepam 0.5 mg PO BID PRN lorazepam mg PO BEDTIME PRN medroxyprogesterone (Depo-Provera) 150 mg IM [id number] 90 days metronidazole 1% 1 appl topical DAILY miscellaneous medical supply 1 ea miscellaneous DAILY vvrppsvj-spsphc-WK-thonzonium 3.3-3-10-0.5 mg/mL (Cortisporin-TC) 1 appl otic (ears) Q4H quetiapine mg PO topiramate 1 tablet in the AM and 2 tabs in the PM Tobacco use date assessed: 04/30/24 Dental Screening Dental Screen Date: 04/30/24 Did you have a dental visit in the last 12 months?: Yes Did you have a dental problem in the last 6 months where you did not have access to dental care?: No Was dental information given to patient?: Patient has dentist HPI ANNUAL HPI Details severe autism [facility] Medical History Surveillance for Depo-Provera contraception Factor V Leiden mutation Allergic rhinitis Seizure disorder Hypothyroidism Autism Surgical History S/P tooth extraction Family History (Updated 09/26/23 @ 13:40 by HENRIQUE Salcido) Father Factor 5 Leiden mutation, heterozygous Mother No problems noted. Maternal Grandmother Hypertension Maternal Grandfather Diabetes Paternal Uncle Cancer Maternal Grandmother Breast cancer Social History Housing: House Alcohol intake: never Patient Tobacco Use Status: Never used Tobacco Tobacco use type: Cigarette e-Cigarette/Vaping Use: Never Used Second Hand Smoke Exposure: No service: No Current occupational status: disabled Cognitive needs: No Hearing needs: No Vision needs: No Female Reproductive History Menstrual Age of Menarche: 11 Questionnaire PHQ-9 Over the last 2 weeks, how often have you been bothered by any of the following problems? 1. Little interest or pleasure in doing things: nearly every day 2. Feeling down, depressed, or hopeless: not at all 3. Trouble falling or staying asleep, or sleeping too much: not at all 4. Feeling tired or having little energy: not at all 5. Poor appetite or overeating: not at all 6. Feeling bad about yourself - or that you are a failure or have let yourself or your family down: not at all 7. Trouble concentrating on things, such as reading the newspaper or watching television: not at all 8. Moving or speaking so slowly that other people could have noticed. Or the opposite - being so fidgety or restless that you have been moving around a lot more than usual: not at all 9. Thoughts that you would be better off or of hurting yourself in some way: not at all Total score: 3 Source: Developed by Drs. Valdo Dia, Cinthya Berman, Marc Chavez and colleagues, with an educational clay from [employer]. Thrive Questionnaire Date Thrive assessed: 04/30/24 I am a: Patient What is your living situation today?: I have a steady place to live Within the past 12 months, did the food you bought not last and you didn't have the money to get more?: Never true Within the past 12 months, did you worry whether your food would run out before you got money to buy more?: Never true Do you have trouble paying for medicines?: No Do you have trouble getting transportation to medical appointments?: No Do you have trouble paying your heating and electricity bill?: No Do you have trouble taking care of your child, family member or friend?: No Do you have trouble with day-to-day activities such as bathing, preparing meals, shopping, managing finances, etc.?: I choose not to answer this question Are you currently unemployed and looking for a job?: No Are you interested in more education?: No Please select the resources that you would like help with: None Currently or been in a relationship where the following occur: No concerns reported THRIVE Score: 0 AUDIT C Alcohol Use Questionnaire (AUDIT-C) 1. How often do you have a drink containing alcohol?: Never Total Score: 0 MERYL-7 AMB Questionnaire MERYL-7 Date MERYL - 7 assessed: 04/30/24 Feeling nervous, anxious, or on edge: 0 = Not at all Not being able to stop or control worryin = Not at all Worrying too much about different things: 0 = Not at all Trouble relaxin = Not at all Being so restless that it is hard to sit still: 0 = Not at all Becoming easily annoyed or irritable: 0 = Not at all Feeling afraid as if something awful might happen: 0 = Not at all Total MERYL-7 score (0-4 normal; 5-9 mild; 10-14 moderate; 15-21 severe): 0 Source: Developed by Drs. Valdo Dia, Cinthya Berman, Marc Chavez and colleagues, with an educational clay from [employer]. Review of Systems Const Denies chills, Denies fatigue, Denies headache(s) and Denies weight loss Eyes Denies change in vision, Denies diplopia and Denies eye pain ENT Denies vertigo, Denies dizziness, Denies headache(s) and Denies nasal discharge Card Denies chest pain, Denies rapid heart rate and Denies dyspnea on exertion Resp Denies chest congestion, Denies cough, Denies pain with cough and Denies dyspnea on exertion GI Denies abdominal pain, Denies hematochezia and Denies change in bowel habits Musc Denies myalgias, Denies arthralgias and Denies joint swelling Skin/Breast Denies lesions and Denies unusual bruising Neuro Denies vertigo, Denies dizziness, Denies headache(s) and Denies focal weakness Endo Denies fatigue Physical exam (Primary Care) Vital Signs: Last Vital Signs Pulse 91 04/30/24 12:57 BP 124/78 12/10/24 12:57 Pulse Ox 98 04/30/24 12:57 Oxygen Delivery Method Room Air 04/30/24 12:57 BMI result Body Mass Index 29.1 Tobacco/Smoking Status: Tobacco use Status Tobacco use date assessed 04/30/24 04/30/24 13:02 Patient Tobacco Use Status Never used Tobacco 04/30/24 13:02 Tobacco use type Cigarette 04/30/24 13:02 e-Cigarette/Vaping Use Never Used 04/30/24 13:02 PHQ-9: PHQ-9 Score PHQ-9: Total score 3 04/30/24 13:02 Thrive Assessment: Date of Thrive Assessment Date Thrive assessed 04/30/24 04/30/24 13:02 Currently or been in a relationship where the following occur: No concerns reported Const General: cooperative, healthy appearing and no acute distress Orientation/consciousness: oriented to person, oriented to place and oriented to time HENMT Head: Yes normal to inspection, Yes normocephalic and Yes atraumatic Mouth: Normal oral and palatal mucosa present and tongue normal Throat: Yes posterior oropharynx normal and Yes uvula midline Eyes General: appearance normal, both eyes and all related structures Neck Neck: Yes normal visual inspection, Yes full ROM and Yes no lymphadenopathy Thyroid: Thyroid normal Carotids: normal carotid upstroke Chest Chest palpation & inspection: normal inspection of the chest Resp Effort & Inspection: normal respiratory effort and able to speak in complete sentences Auscultation: clear to auscultation bilaterally Cardio Jugular venous distension: no JVD Palpation: normal PMI Rate: regular rate Rhythm: regular rhythm Heart sounds: S1 normal heart sound present and S2 normal heart sound present GI Inspection: Yes normal to inspection Palpation (GI): Soft to palpation and No hepatosplenomegaly present Auscultation: normal bowel sounds General: Yes no CVA tenderness Back/Spine/Pelvis Back: no CVA tenderness Skin General skin exam: no rashes or lesions noted Neuro General: oriented to person, oriented to place and oriented to time Extrem General: Yes normal to inspection and Yes full ROM Coding Level of Care Code Est Pt Prev Care 40-64y(04113) Diagnoses Physical exam Z00.00 Autism F84.0 Assessment & Plan Assessment & Plan (1) Physical exam: Code(s): Z00.00 - Encounter for general adult medical examination without abnormal findings Category: Medical Plan: stable; do labs (2) Autism: Code(s): F84.0 - Autistic disorder Category: Medical Plan: as per psych Orders: Orders Lipid Panel Today Z13.220 - Encounter for screening for lipoid disorders Complete Blood Count Auto Diff Today Z13.0 - Encounter for screening for diseases of the blood and blood-forming organs and certain disorders involving the immune mechanism Comprehensive [place]. Panel Fast Today Z13.9 - Encounter for screening, unspecified Thyroid Stimulating Hormone Today Z13.29 - Encounter for screening for other suspected endocrine disorder
== END 2024-04-30 13:17 | disposition home or self-care (01) ==
PROVIDERS: PCP Internal Medicine; Visit Provider Internal Medicine
DX: Z00.00 Encounter for general adult medical examination without abnormal findings (principal); F84.0 Autistic disorder

== ENCOUNTER → 2024-04-30 12:54 | Outpatient (BNVA) | payer OTHER, SELFPAY | PROVIDERS: PCP Internal Medicine; Visit Provider Internal Medicine | DX: Z00.00 Encounter for general adult medical examination without abnormal findings (principal); F84.0 Autistic disorder | CPT/HCPCS: 96127; 99396 ==

== ENCOUNTER 2024-05-27 10:51 | Outpatient (AMB) | payer OTHER, SELFPAY ==
--- NOTE | 2024-05-27 11:10 | AM.OFFVISNUR ---
Vital Signs 05/27/24 11:11 Height 5 ft 2 in Weight 157 lb 4 oz BMI 28.8 Intake Visit Reasons: depo Allergies Seasonal Allergies Allergy (Mild, Verified 04/30/24 12:57) Sniffles. risperidone [From Risperdal] Adverse Reaction (Mild, Verified 04/30/24 12:57) CHANGES HER PERSONALITY Nursing Note Agata, ''Tinkerbell'' is here today with her mother for her scheduled injection. No c/o per mom, follow up in 12 weeks for next inj. Office Procedures Depo Questionnaire If YES to any of the following questions, please consult a provider. Date of last injection: 03/11/24 Date of last gynecology exam: 11/30/23 Menstrual pattern since last injection has been: Not Applicable Irregular bleeding?: No Breast lumps or other breast changes?: No Changes in weight or appetite?: No Depression or changes in mood?: No Abnormal hair growth or loss?: No Skin problems (rash, acne, discoloration)?: No Pain at the injection site?: No Headaches?: No Nervousness?: No Abdominal pain or cramping?: No Dizziness or nausea?: No Fatigue or weakness?: No Decrease in sexual drive?: Not Applicable Chest pain or shortness of breath?: No Swelling in arms or legs?: No Form completed by?: Arabella Bartholomew LPN Office Meds Depo-Provera 150 mg/mL intramuscular syringe Performing Provider: Mala Taylor CNM Performing Location: [facility] Administered by: Lizzeth Bartholomew LPN on 05/27/24 11:11 Dose Route Admin Location Dispensed Lot Number Expiration Date [facility] Fruit And Vegetable Inspector 150 mg IM rt. deltoid 1 mL [id number] 08/19/25 15330-793-65 MYLAN Assessment & Plan Assessment & Plan Orders: Orders AMB Medroxyprogesterone Injection Patient Supplied Today Z30.42 - Encounter for surveillance of injectable contraceptive Medications: New Depo-Provera (medroxyprogesterone) 150 mg IM ONCE 1 mL 0RF NS Z30.42 - Encounter for surveillance of injectable contraceptive
[2024-05-27 11:11] VITALS: BMI 28.8
== END 2024-05-27 11:06 | disposition home or self-care (01) ==
LOC: HO.HWS 10:51
PROVIDERS: PCP Internal Medicine; Visit Provider Advanced Practice Midwife
DX: Z30.42 Encounter for surveillance of injectable contraceptive (principal)

== ENCOUNTER → 2024-05-27 10:51 | Outpatient (BNVA) | payer OTHER, SELFPAY | PROVIDERS: PCP Internal Medicine; Visit Provider Advanced Practice Midwife | DX: Z30.42 Encounter for surveillance of injectable contraceptive (principal) | CPT/HCPCS: 96372; 99211; J1050 ==

== ENCOUNTER 2024-08-19 10:54 | Outpatient (AMB) | payer OTHER, SELFPAY ==
--- NOTE | 2024-08-19 11:02 | AM.OFFVISNUR ---
Vital Signs 08/19/24 11:02 Height 5 ft 2 in Weight 164 lb BMI 30.0 Intake Visit Reasons: DEPO Allergies Seasonal Allergies Allergy (Mild, Verified 04/30/24 12:57) Sniffles. risperidone [From Risperdal] Adverse Reaction (Mild, Verified 04/30/24 12:57) CHANGES HER PERSONALITY Nursing Note Agata is here today with her mother for her Depo-Provera inj, as scheduled. Mom denies any problems for Agata with the Depo-Provera. Follow up in 12 weeks. Office Procedures Depo Questionnaire If YES to any of the following questions, please consult a provider. Date of last injection: 05/27/24 Date of last gynecology exam: 11/30/23 Menstrual pattern since last injection has been: Not Applicable Irregular bleeding?: No Breast lumps or other breast changes?: No Changes in weight or appetite?: Yes (few lbs weight gain) Depression or changes in mood?: No Abnormal hair growth or loss?: No Skin problems (rash, acne, discoloration)?: No Pain at the injection site?: No Headaches?: No Nervousness?: Not Applicable Abdominal pain or cramping?: No Dizziness or nausea?: No Fatigue or weakness?: No Decrease in sexual drive?: Not Applicable Chest pain or shortness of breath?: No Swelling in arms or legs?: No Form completed by?: Arabella Bartholomew LPN Office Meds Depo-Provera 150 mg/mL intramuscular syringe Performing Provider: Mala Taylor CNM Performing Location: [facility] [place] [facility] Administered by: Lizzeth Bartholomew LPN on 08/19/24 11:02 Dose Route Admin Location Dispensed Lot Number Expiration Date [facility] Medication Care Manager 150 mg IM left deltoid 1 mL [id number] 09/18/25 30907-618-65 MYLAN Assessment & Plan Assessment & Plan Orders: Orders AMB Medroxyprogesterone Injection Patient Supplied Today Z30.42 - Encounter for surveillance of injectable contraceptive Medications: New Depo-Provera (medroxyprogesterone) 150 mg IM ONCE 1 mL 0RF NS Z30.42 - Encounter for surveillance of injectable contraceptive Coding Level of Care Code Established Pt Est Pt Level 1 (98204) Patient Type Established History Problem Focused Exam Problem Focused Medical Decision Making Straight Forward Time Spent (min) 20
--- OUTSIDE RECORDS SUMMARY | 2024-08-19 12:21 | XMS_ITS | Encounter Summary ---
Author Organization [facility] Address [address] [place] [id number] Phone Care Team Providers Care Aircraft Tool Maker Name Role Phone Unavailable Primary Care Provider Unavailabl e Encounter Details Date Type Department Care Team (Late st Contact Info) Description 03/05/2012 Documentation [facility] Family Medicine [address] [place] [address] Family Medicine, Physician [address], [place] [id number] Social History Tobacco Use Types Packs/Day Years Used Date Smoking Tobacco: Never Assessed Comments Unknown Sex and Gender Information Value Date Recorded Sex Assigned at Not on file Legal Sex Female 4:41 PM EDT Gender Identity Not on file Sexual Orientation Not on file documented as of this encounter Plan of Treatment Not on file documented as of this encounter Visit Diagnoses Not on filedocumented in this encounter
--- OUTSIDE RECORDS SUMMARY | 2024-08-19 12:21 | XMS_ITS | Clinical Summary ---
Author Organization [facility] Address [address] [place] [address] Phone Care Team Providers Care Supervisor Grain And Yeast Plants Name Role Phone Unavailable Primary Care Provider Unavailabl e Immunizations Immunization Administration Dates Next Due DTP 07/19/1994, 4,12/09/1988,1985,01/07/1985 Hep B / HiB 09/28/2005 Hep B, ped/adol 11/09/2005 Hib (HbOC) 12/20/1995 IPV 07/19/1994, 4,12/09/1988,1985 MMR 12/11/1995,03/18/1985 Td (adult) (MBL), 2 Lf tetan us toxoid, PF, adsorbed 09/28/2005,08/17/1999 Social History Tobacco Use Types Packs/Day Years Used Date Smoking Tobacco: Never Assessed Comments Unknown Sex and Gender Information Value Date Recorded Sex Assigned at Not on file Legal Sex Female 4:41 PM EDT Gender Identity Not on file Sexual Orientation Not on file Plan of Treatment Health Maintenance Due Date Last Done Comments Varicella Vaccines (1 of 2 - 13+ 2-dose series) 12/03/1996 Hepatitis B Vaccines (2 of 3 - 19+ 3-dose series) 12/07/2005 11/09/2005, 09/28/2005 DTaP,Tdap,and Td Vaccines (8 - Tdap) 09/29/2015 09/28/2005, 08/17/1999, 07/19/1994, Additional history exists Influenza Vaccines (#1) 2023 COVID-19 Vaccine (2023- season) 2024 IPV Vaccines Completed 07/19/1994, 03/24, 12/09/1988, Additional history exists MMR Vaccines Completed 12/11/1995, 03/18/1985 HIB Vaccines Aged Out 09/28/2005, 12/20/1995 No lo nger eligible based on patient's age to complete this topic HPV Vaccines Aged Out No longer eligi ble based on patient's age to complete this topic Hepatitis A Vaccines Aged Out No long er eligible based on patient's age to complete this topic Men B Vaccine Aged Out No longer elig ible based on patient's age to complete this topic Meningococcal Vaccine Aged Out No thom suzy eligible based on patient's age to complete this topic Pneumococcal Vaccine Aged Out No long er eligible based on patient's age to complete this topic
--- OUTSIDE RECORDS SUMMARY | 2024-08-19 12:21 | XMS_ITS | Encounter Summary ---
Author Organization [facility] Address [address] [place] [address] Phone Care Team Providers Care Wire Harness Assembler Name Role Phone Unavailable Primary Care Provider Unavailabl e Encounter Details Date Type Department Care Team (Late st Contact Info) Description 01/05/2017 Conversion Encounter [facility] - [address] [address] Social History Tobacco Use Types Packs/Day Years [...]
== END 2024-08-19 11:11 | disposition home or self-care (01) ==
LOC: HO.HWS 10:54
PROVIDERS: PCP Internal Medicine; Visit Provider Advanced Practice Midwife
DX: Z30.42 Encounter for surveillance of injectable contraceptive (principal)

== ENCOUNTER → 2024-08-19 10:54 | Outpatient (BNVA) | payer OTHER, SELFPAY | PROVIDERS: PCP Internal Medicine; Visit Provider Advanced Practice Midwife | DX: Z30.42 Encounter for surveillance of injectable contraceptive (principal) | CPT/HCPCS: 96372; 99211; J1050 ==

== ENCOUNTER 2024-11-11 10:50 | Outpatient (AMB) | payer OTHER, SELFPAY ==
[2024-11-11 11:00] VITALS: BMI 29.1
--- NOTE | 2024-11-11 11:00 | AM.OFFVISNUR ---
Vital Signs 11/11/24 11:00 Height 5 ft 2 in Weight 159 lb 6 oz BMI 29.1 Intake Visit Reasons: DEPO Allergies Seasonal Allergies Allergy (Mild, Verified 04/30/24 12:57) Sniffles. risperidone (From Risperdal) Adverse Reaction (Mild, Verified 04/30/24 12:57) CHANGES HER PERSONALITY Nursing Note car [Charlie] is here with her mother today for her scheduled depo-provera inj. Mom reports increased mood swin gs , but does not feel it is from the Depo-Provera, but because of her Autism. Pt tolerated inj well. follow up in 12 weeks AG scheduled for 03/18/25. Office Procedures Depo Questionnaire If YES to any of the following questions, please consult a provider. Date of last injection: 08/19/24 Date of last gynecology exam: 12/13/23 Menstrual pattern since last injection has been: Not Applicable Irregular bleeding?: No Breast lumps or other breast changes?: No Changes in weight or appetite?: No Depression or changes in mood?: No Abnormal hair growth or loss?: No Skin problems (rash, acne, discoloration)?: No Pain at the injection site?: No Headaches?: No Nervousness?: No Abdominal pain or cramping?: No Dizziness or nausea?: No Fatigue or weakness?: No Decrease in sexual drive?: Not Applicable Chest pain or shortness of breath?: No Swelling in arms or legs?: No Form completed by?: Lizzeth Bartholomew LPN Office Meds Depo-Provera 150 mg/mL intramuscular suspension Performing Provider: Mala Taylor CNM [place] [facility] [place] [facility] Administered by: Lizzeth Bartholomew LPN on 11/11/24 11:00 Dose Route Admin Location Dispensed Lot Number Expiration Date [facility] Admin Dir 150 mg IM rt. deltoid 1 mL [id number] 10/19/25 44337-559-06 [employer] Total Dispensed Waste 1 mL 0 % Assessment & Plan Assessment & Plan Orders: Orders AMB Medroxyprogesterone Injection Patient Supplied Today Z30.42 - Encounter for surveillance of injectable contraceptive Coding Level of Care Code Established Pt Est Pt Level 1 (25085) Patient Type Established History Problem Focused Exam Problem Focused Medical Decision Making Straight Forward Time Spent (min) 20
--- OUTSIDE RECORDS SUMMARY | 2024-11-11 12:15 | XMS_ITS | Encounter Summary ---
Author Organization [facility] Address [address] [place] [address] Phone Care Team Providers Care Manager Completions Name Role Phone Unavailable Primary Care Provider Unavailabl e Encounter Details Date Type Department Care Team (Late st Contact Info) Description 03/05/2012 Documentation [facility] [place] Family Medicine [address] [place] [address] Family Medicine, Physician [address] [phone] Social History Tobacco Use Types Packs/Day Years [...]
== END 2024-11-11 11:20 | disposition home or self-care (01) ==
LOC: HO.HWS 10:50
PROVIDERS: PCP Internal Medicine; Visit Provider Advanced Practice Midwife
DX: Z30.42 Encounter for surveillance of injectable contraceptive (principal)

== ENCOUNTER → 2024-11-11 10:50 | Outpatient (BNVA) | payer OTHER, SELFPAY | PROVIDERS: PCP Internal Medicine; Visit Provider Advanced Practice Midwife | DX: Z30.42 Encounter for surveillance of injectable contraceptive (principal) | CPT/HCPCS: 96372; 99211; J1050 ==

== ENCOUNTER 2025-01-31 09:38 | Outpatient (AMB) | payer OTHER, SELFPAY ==
--- NOTE | 2025-01-31 09:57 | A.OFFVIS_ITS ---
Intake Visit Reasons: follow up Accompanied by: Mother Allergies Seasonal Allergies Allergy (Mild, Verified 01/31/25 10:01) Sniffles. risperidone (From Risperdal) Adverse Reaction (Mild, Verified 01/31/25 10:01) CHANGES HER PERSONALITY Medication List - Last Reconciled 01/31/[address] CNP aspirin (Adult Aspirin Regimen) 81 mg PO DAILY [commode As directed] fluticasone propionate 50 mcg/actuation 1 spray intranasal DAILY [Guardian Helmet As directed] lamotrigine 200 mg PO BID levothyroxine 25 mcg PO DAILY lorazepam 0.5 mg PO BID PRN lorazepam mg PO BEDTIME PRN medroxyprogesterone 150 mg IM [id number] metronidazole 1% 1 appl topical DAILY miscellaneous medical supply 1 ea miscellaneous DAILY hdynxnat-zoeneu-KE-thonzonium 3.3-3-10-0.5 mg/mL (Cortisporin-TC) 1 appl otic (ears) Q4H quetiapine mg PO topiramate 200 mg (2 x 100 mg) PO BID 90 days HPI Comments Details: She was doing okay, currently at home and on the call with her mother. She was does not verbalize in meaningful way. No seizures. No significant behavior changes. No falls. She was going to day program 5 days/week. Sleep was okay. Does a lot of bouncing in the car and hard to control. Occasional mood swings. Not aggressive. Bites her clothing and being loud. Last 2 seizures on 11/06/17 and 01/01/18 mild x 2 minutes unresponsive and shaking. Gets bored and gets aggressive with parents. Restless, pacing, and rocking back and forth. She has autistic disorder and seizures. [facility] Medical History Surveillance for Depo-Provera contraception Factor V Leiden mutation Allergic rhinitis Seizure disorder Hypothyroidism Autism Surgical History S/P tooth extraction Family History (Updated 09/26/23 @ 13:40 by HENRIQUE Salcido) Father Factor 5 Leiden mutation, heterozygous Mother No problems noted. Maternal Grandmother Hypertension Maternal Grandfather Diabetes Paternal Uncle Cancer Maternal Grandmother Breast cancer Social History Housing: House Alcohol intake: never Patient Tobacco Use Status: Never used Tobacco Tobacco use type: Cigarette e-Cigarette/Vaping Use: Never Used Second Hand Smoke Exposure: No service: No Current occupational status: disabled Cognitive needs: No Hearing needs: No Vision needs: No Female Reproductive History Menstrual Age of Menarche: 11 Review of Systems Const Denies chills, Denies daytime sleepiness, Denies difficulty sleeping, Denies fatigue, Denies fever(s), Denies frequent falls, Denies headache(s), Denies increased appetite, Denies poor appetite, Denies snoring, Denies weakness, Denies weight gain and Denies weight loss Eyes Denies loss of vision ENT Denies vertigo, Denies dizziness, Denies headache(s) and Denies neck pain Card Denies chest pain at rest, Denies chest pain with activity, Denies syncope, Denies leg edema, Denies palpitations, Denies dyspnea and Denies dyspnea on exertion Resp Denies cough, Denies dyspnea, Denies dyspnea on exertion and Denies snoring GI Denies abdominal pain, Denies constipation, Denies heartburn, Denies diarrhea and Denies nausea Denies urinary frequency, Denies urinary incontinence and Denies urinary urgency Musc Denies abnormal gait, Denies back pain, Denies myalgias, Denies arthralgias, Denies neck pain, Denies numbness and Denies tingling Neuro Denies abnormal gait, Denies vertigo, Denies dizziness, Denies syncope, Denies frequent falls, Denies headache(s), Denies lack of coordination, Denies loss of vision, Denies memory loss, Denies numbness, Denies Other visual disturbances, Denies restless legs, Denies seizure-like activity, Denies tingling, Denies paresthesias, Denies tremor(s) and Denies weakness Psych Denies anxiety, Denies depression, Denies auditory hallucinations, Denies memory loss and Denies visual hallucinations Endo Denies fatigue and Denies palpitations Physical Exam Const Other: Deferred due to televisit. Telehealth Telehealth Telehealth Platform: Telephone Location of provider rendering services: practice address Location of patient: address on file Patient Identification confirmed using: Name, : Yes Telehealth method: voice only Patient verbally consented to treatment: Yes Patient verbally consented to billing insurance company: Yes Assessment & Plan Assessment & Plan (1) Convulsion: Code(s): R56.9 - Unspecified convulsions Category: Medical Qualifiers: Convulsion type: unspecified Qualified Code(s): R56.9 - Unspecified convulsions Plan: Continue lamotrigine 200mg 1 tablet twice a day. Medications: Changed From lamotrigine 200 mg PO BID To lamotrigine 200 mg PO BID 180 tabs 3RF 90 days Coding Level of Care Code Tele Est Pt Level 3 (99919) Diagnoses Convulsions, unspecified convulsion type R56.9 Convulsion type: unspecified
--- OUTSIDE RECORDS SUMMARY | 2025-01-31 10:44 | XMS_ITS | Clinical Summary ---
Author Organization [facility] Address [address] [place] [address] Phone Care Team Providers Care Tool Die Maker Name Role Phone Unavailable Primary Care [...] - 19+ 3-dose series) 12/07/2005 11/09/2005, 09/28/2005 HPV Vaccines (1 - 3-dose SCDM series) 12/03/2010 DTaP,Tdap,and Td Vaccines (8 - Tdap) 09/29/2015 09/28/2005, 08/17/1999, 07/19/1994, Additional history exists Influenza Vaccines (#1) 2024 COVID-19 Vaccine ( season) 2025 IPV Vaccines Completed 07/19/1994, 03/24, 12/09/1988, Additional [...]
--- OUTSIDE RECORDS SUMMARY | 2025-01-31 10:44 | XMS_ITS | Encounter Summary ---
Author Organization [facility] Address [address] [place] [address] Phone Care Team Providers Care Cold Mill Supervisor Name Role Phone Unavailable Primary Care Provider Unavailabl e Encounter Details Date Type Department Care Team (Late st Contact Info) Description 03/05/2012 Documentation [facility] [place] Family Medicine [address] [place] [address] Family Medicine, Physician [address], [place] [phone] Social History Tobacco Use Types Packs/Day Years [...]
--- OUTSIDE RECORDS SUMMARY | 2025-01-31 10:44 | XMS_ITS | Encounter Summary ---
Author Organization [facility] Address [address] [place] [address] Phone Care Team Providers Care Third Shift Lieutenant Name Role Phone Unavailable Primary Care Provider Unavailabl e Encounter Details Date Type Department Care Team (Late st Contact Info) Description 01/05/2017 Conversion Encounter [facility] - [address] [address] Social History Tobacco Use Types Packs/Day Years [...]
== END 2025-01-31 10:18 | disposition home or self-care (01) ==
LOC: HO.HSM 09:38
PROVIDERS: PCP Internal Medicine; Visit Provider Registered Nurse
DX: R56.9 Unspecified convulsions (principal)
CPT/HCPCS: 99213

== ENCOUNTER 2025-02-03 10:58 | Outpatient (AMB) | payer OTHER, SELFPAY ==
--- NOTE | 2025-02-03 11:20 | AM.OFFVISNUR ---
Vital Signs 02/03/25 11:20 Weight 159 lb 4 oz Intake Visit Reasons: DEPO Allergies Seasonal Allergies Allergy (Mild, Verified 01/31/25 10:01) Sniffles. risperidone (From Risperdal) Adverse Reaction (Mild, Verified 01/31/25 10:01) CHANGES HER PERSONALITY Nursing Note Agata is here today for her scheduled Depo-Provera inj, with her mother. Mom notice increase in Baldo Acne, and will discuss with provider at pts AG in February. Follw up for next inj in 12 weeks. Office Procedures Depo Questionnaire If YES to any of the following questions, please consult a provider. Date of last injection: 11/13/24 Date of last gynecology exam: 12/13/23 Menstrual pattern since last injection has been: Not Applicable Irregular bleeding?: No Breast lumps or other breast changes?: No Changes in weight or appetite?: No Depression or changes in mood?: No Abnormal hair growth or loss?: No Skin problems (rash, acne, discoloration)?: Yes (increased acne) Pain at the injection site?: No Headaches?: No Nervousness?: No Abdominal pain or cramping?: No Dizziness or nausea?: No Fatigue or weakness?: No Decrease in sexual drive?: Not Applicable Chest pain or shortness of breath?: No Swelling in arms or legs?: No Form completed by?: Arabella Bartholomew LPN Office Meds Depo-Provera 150 mg/mL intramuscular syringe Performing Provider: Mala Taylor CNM Performing Location: [facility] [place] [facility] Administered by: Lizzeth Bartholomew LPN on 02/03/25 11:21 Dose Route Admin Location Dispensed Lot Number Expiration Date [facility] Certified Master Safe Technician 150 mg IM rt. deltoid 1 mL [id number] 10/19/25 95050-340-64 [employer] Total Dispensed Waste 1 mL 0 % Assessment & Plan Assessment & Plan Orders: Orders AMB Medroxyprogesterone Injection Patient Supplied Today Z30.42 - Encounter for surveillance of injectable contraceptive Coding Level of Care Code Established Pt Est Pt Level 1 (31663) Patient Type Established History Problem Focused Exam Problem Focused Medical Decision Making Straight Forward Time Spent (min) 20
--- OUTSIDE RECORDS SUMMARY | 2025-02-03 14:44 | XMS_ITS | Encounter Summary ---
Author Organization [facility] Address [address] [place] [address] Phone Care Team Providers Care Cavalry Officer Name Role Phone Unavailable Primary Care Provider Unavailabl e Encounter Details Date Type Department Care Team (Late st Contact Info) Description 01/05/2017 Conversion Encounter [facility] - [address] [address] Social History Tobacco Use Types Packs/Day Years [...]
--- OUTSIDE RECORDS SUMMARY | 2025-02-03 14:44 | XMS_ITS | Clinical Summary ---
Author Organization [facility] Address [address] [place] [address] Phone Care Team Providers Care Soil Fertility Extension Specialist Name Role Phone Unavailable Primary Care Provider [...]
--- OUTSIDE RECORDS SUMMARY | 2025-02-03 14:44 | XMS_ITS | Encounter Summary ---
Author Organization [facility] Address [address] [place] [address] Phone Care Team Providers Care Bead Machine Operator Name Role Phone Unavailable Primary Care Provider Unavailabl e Encounter Details Date Type Department Care Team (Late st Contact Info) Description 03/05/2012 Documentation [facility] [place] Family Medicine [address] [place] [address] Family Medicine, Physician [address], [place] [phone] Social History Tobacco Use Types Packs/Day Years [...]
== END 2025-02-03 11:11 | disposition home or self-care (01) ==
LOC: HO.HWS 10:58
PROVIDERS: PCP Internal Medicine; Visit Provider Advanced Practice Midwife
DX: Z30.42 Encounter for surveillance of injectable contraceptive (principal)

== ENCOUNTER → 2025-02-03 10:58 | Outpatient (BNVA) | payer OTHER, SELFPAY | PROVIDERS: PCP Internal Medicine; Visit Provider Advanced Practice Midwife | DX: Z30.013 Encounter for initial prescription of injectable contraceptive (principal) | CPT/HCPCS: 96372; 99211; J1050 ==

== ENCOUNTER 2025-03-18 10:33 | Outpatient (AMB) | payer OTHER, SELFPAY ==
--- NOTE | 2025-03-18 10:43 | MHC.OFFVIS ---
Vital Signs 03/18/25 10:44 Height 5 ft 2 in Weight 160 lb BMI 29.3 BP 102/66 Intake Visit Reasons: MUD GRINDER annual exam Ships Or Barges Loader: Ships Or Barges Loader Present (Lory) Accompanied by: Mother Allergies Seasonal Allergies Allergy (Mild, Verified 03/18/25 11:11) Sniffles. risperidone (From Risperdal) Adverse Reaction (Mild, Verified 03/18/25 11:11) CHANGES HER PERSONALITY HPI Comments Details: Patient is here today with her mom, Lupe for her annual exam. She is nonverbal with autism. Current Depo user due to severe sensory issues with bleeding. Had consult at [facility] for long-term possible hysterectomy, it was not recommended and family choose to continue with Depo at this time. History of factor 5 mutation. Uncooperative for physical exam and mammogram screening. Personal care provided by her mom as she is unable to do this task on her own. She attends day program. And can communicate by touching herself and moaning to express any pain. Her diet is monitored for overeating, and she is able to walk for exercise. Family is planning to have a dental exam this winter under sedation and she was wondering if she could have a Pap smear and pelvic exam at the same time. [facility] Medical History Surveillance for Depo-Provera contraception Factor V Leiden mutation Allergic rhinitis Seizure disorder Hypothyroidism Autism Surgical History S/P tooth extraction Family History Father Factor 5 Leiden mutation, heterozygous Mother No problems noted. Maternal Grandmother Hypertension Maternal Grandfather Diabetes Paternal Uncle Cancer Maternal Grandmother Breast cancer Social History Housing: House Alcohol intake: never Patient Tobacco Use Status: Never used Tobacco Tobacco use type: Cigarette e-Cigarette/Vaping Use: Never Used Second Hand Smoke Exposure: No service: No Current occupational status: disabled Cognitive needs: No Hearing needs: No Vision needs: No Female Reproductive History Menstrual Age of Menarche: 11 control method: progesterone injection Total pregnancies: 0 Physical Exam Vital Signs: Last Vital Signs BP 102/66 03/18/25 10:44 BMI result Body Mass Index 29.3 Const Nutritional Appearance: well nourished Neuro Other: Constant rocking motion Speech: Other speech findings present (Neuro) (Nonverbal) Assessment & Plan Assessment & Plan (1) Surveillance for Depo-Provera contraception: Code(s): Z30.42 - Encounter for surveillance of injectable contraceptive Category: Medical Plan Discussed: Limitations for patient to be able to express herself communicate. Notification of any medical changes to the office. Check with dental provider if procedure is done at [facility] OR it maybe possible to have a provider complete an exam at the same. Continue with Depo-Provera for suppression of menstrual cycle blood flow, due to severe autistic features. The patient expressed understanding and agreement with the plan of care. All of her questions and concerns were addressed to the best of my ability. This note is constructed using voice recognition software. While every effort has been made to ensure accuracy, refuge manager errors may have been included. Medications: Refilled medroxyprogesterone 150 mg IM [id number] 1 mL 4RF Coding Level of Care Code Est Pt Level 3 (15186) Diagnoses Surveillance for Depo-Provera contraception Z30.42
[2025-03-18 10:44] VITALS: BP 102/66; BMI 29.3
--- OUTSIDE RECORDS SUMMARY | 2025-03-18 13:15 | XMS_ITS | Encounter Summary ---
Author Organization [facility] Address [address] [place] [address] Phone Care Team Providers Care Repairer Typewriter Name Role Phone Unavailable Primary Care Provider Unavailabl e Encounter Details Date Type Department Care Team (Late st Contact Info) Description 03/05/2012 Documentation [facility] [place] Family Medicine [address] [place] [address] Family Medicine, Physician [address], [place] [phone] Social History Tobacco Use Types Packs/Day Years [...]
--- OUTSIDE RECORDS SUMMARY | 2025-03-18 13:15 | XMS_ITS | Clinical Summary ---
Author Organization [facility] Address [address] [place] [address] Phone Care Team Providers Care Retail Loss Prevention Specialist Name Role Phone Unavailable Primary Care [...]
--- OUTSIDE RECORDS SUMMARY | 2025-03-18 13:15 | XMS_ITS | Encounter Summary ---
Author Organization [facility] Address [address] [place] [address] Phone Care Team Providers Care Triage Licensed Practical Nurse Name Role Phone Unavailable Primary Care Provider Unavailabl e Encounter Details Date Type Department Care Team (Late st Contact Info) Description 01/05/2017 Conversion Encounter [facility] - [address] [address] Social History Tobacco Use Types Packs/Day Years [...]
== END 2025-03-18 13:54 | disposition home or self-care (01) ==
LOC: HO.HWS 10:34
PROVIDERS: PCP Internal Medicine; Visit Provider Advanced Practice Midwife
DX: Z30.42 Encounter for surveillance of injectable contraceptive (principal)
CPT/HCPCS: 99213

== ENCOUNTER → 2025-03-18 10:33 | Outpatient (BNVA) | payer OTHER, SELFPAY | PROVIDERS: PCP Internal Medicine; Visit Provider Advanced Practice Midwife | DX: Z30.42 Encounter for surveillance of injectable contraceptive (principal) | CPT/HCPCS: 99212 ==

== ENCOUNTER 2025-04-21 10:53 | Outpatient (AMB) | payer OTHER, SELFPAY ==
[2025-04-21 11:15] VITALS: BMI 28.3
--- NOTE | 2025-04-21 11:15 | AM.OFFVISNUR ---
Vital Signs 04/21/25 11:15 Height 5 ft 2 in Weight 155 lb BMI 28.3 Intake Visit Reasons: depo Allergies Seasonal Allergies Allergy (Mild, Verified 03/18/25 11:11) Sniffles. risperidone (From Risperdal) Adverse Reaction (Mild, Verified 03/18/25 11:11) CHANGES HER PERSONALITY Nursing Note Charlie is here with her mother today for her scheduled Depo-Provera INJ. Pt is non-verbal, Mom denies any problems with the Depo-Provera. Follow up in 12 weeks scheduled. Office Procedures Depo Questionnaire If YES to any of the following questions, please consult a provider. Date of last injection: 03/25/25 Date of last gynecology exam: 03/18/25 Menstrual pattern since last injection has been: Not Applicable Irregular bleeding?: No Breast lumps or other breast changes?: No Changes in weight or appetite?: Yes (Loss of 5 lbs) Depression or changes in mood?: No Abnormal hair growth or loss?: No Skin problems (rash, acne, discoloration)?: No Pain at the injection site?: No Headaches?: No Nervousness?: No Abdominal pain or cramping?: No Dizziness or nausea?: No Fatigue or weakness?: No Decrease in sexual drive?: No Chest pain or shortness of breath?: No Swelling in arms or legs?: No Form completed by?: Arabella valenzuela LPN Office Meds Depo-Provera 150 mg/mL intramuscular syringe Performing Provider: Mala Taylor CNM Performing Location: [facility] [place] [facility] Administered by: Lizzeth Valenzuela LPN on 04/21/25 11:16 Dose Route Admin Location Dispensed Lot Number Expiration Date [facility] Dormitory Keeper 150 mg IM lt. deltoid 1 mL [id number] 05/21/27 31695-564-87 [facility] Total Dispensed Waste 1 mL 0 % Assessment & Plan Assessment & Plan Orders: Orders AMB Medroxyprogesterone Injection Patient Supplied Today Z30.42 - Encounter for surveillance of injectable contraceptive Coding Level of Care Code Established Pt Est Pt Level 1 (82155) Patient Type Established History Problem Focused Exam Problem Focused Medical Decision Making Straight Forward Time Spent (min) 20
--- OUTSIDE RECORDS SUMMARY | 2025-04-21 14:06 | XMS_ITS | Encounter Summary ---
Author Organization [facility] Address [address] [place] [address] Phone Care Team Providers Care Archival Records Clerk Name Role Phone Unavailable Primary Care Provider Unavailabl e Encounter Details Date Type Department Care Team (Late st Contact Info) Description 03/05/2012 Documentation [facility] [place] Family Medicine [address] [place] [address] Family Medicine, Physician [address], [place] [phone] Social History Tobacco Use Types Packs/Day Years [...]
--- OUTSIDE RECORDS SUMMARY | 2025-04-21 14:06 | XMS_ITS | Clinical Summary ---
Author Organization [facility] Address [address] [place] [address] Phone Care Team Providers Care Sports Cartoonist Name Role Phone Unavailable Primary Care Provider [...]
--- OUTSIDE RECORDS SUMMARY | 2025-04-21 14:06 | XMS_ITS | Encounter Summary ---
Author Organization [facility] Address [address] [place] [address] Phone Care Team Providers Care Inspector And Hand Packager Name Role Phone Unavailable Primary Care Provider Unavailabl e Encounter Details Date Type Department Care Team (Late st Contact Info) Description 01/05/2017 Conversion Encounter [facility] - [address] [address] Social History Tobacco Use Types Packs/Day Years [...]
== END 2025-04-21 11:15 | disposition home or self-care (01) ==
LOC: HO.HWS 10:54
PROVIDERS: PCP Internal Medicine; Visit Provider Advanced Practice Midwife
DX: Z30.42 Encounter for surveillance of injectable contraceptive (principal)

== ENCOUNTER → 2025-04-21 10:53 | Outpatient (BNVA) | payer OTHER, SELFPAY | PROVIDERS: PCP Internal Medicine; Visit Provider Advanced Practice Midwife | DX: Z30.42 Encounter for surveillance of injectable contraceptive (principal) | CPT/HCPCS: 96372; 99211; J1050 ==

== ENCOUNTER 2025-05-09 12:53 | Outpatient (AMB) | payer OTHER, SELFPAY ==
[2025-05-09 13:04] VITALS: BP 116/82; PULSE 103; O2SAT 99; BMI 29.4
--- NOTE | 2025-05-09 13:04 | A.OFFPC_ITS ---
Vital Signs 05/09/25 13:04 Height 5 ft 2 in Weight 161 lb BMI 29.4 BP 116/82 Blood Pressure Location Lt brachial Position Sitting Pulse 103 H Pulse Source Pulse Oximeter Pulse Oximetry (%) 99 Oxygen Delivery Method Room Air Intake Visit Reasons: Transfer care from Dr. Palmer Annual Exam Global Cmo Required: No Accompanied by: Self / Same As Patient Allergies Seasonal Allergies Allergy (Mild, Verified 05/09/25 13:04) Sniffles. risperidone (From Risperdal) Adverse Reaction (Mild, Verified 05/09/25 13:04) CHANGES HER PERSONALITY Medication List - Last Reconciled 05/11/25 by Mehdi Smallwood MD aspirin (Adult Aspirin Regimen) 81 mg PO DAILY [commode As directed] lamotrigine 200 mg PO BID 90 days levothyroxine 25 mcg PO DAILY lorazepam 0.5 mg PO BID PRN lorazepam 1 mg PO BEDTIME PRN medroxyprogesterone 150 mg IM [id number] quetiapine 400 mg PO BID topiramate 200 mg (2 x 100 mg) PO BID 90 days Tobacco use date assessed: 05/09/25 Dental Screening Dental Screen Date: 05/09/25 Did you have a dental visit in the last 12 months?: No Did you have a dental problem in the last 6 months where you did not have access to dental care?: No Was dental information given to patient?: No HPI Transfer care from Dr. Palmer Annual Exam HPI Details Patient comes in today for her annual physical examination - is tra nsferring over from Dr. Palmer, who retired from the practice earlier this year Patient is accompanied by her mother, who is her legal guardian, as patient is incapable of taking care of herself due to her mental and psychiatric issues She also has a few medical conditions that she is being followed up for on a regular basis - Seizure Disorder: The patient has a hi story of seizures but is reported to be doing well and has not had a seizure in years. - She is currently maintained on lamotri gine 200 mg twice a day, topiramate 200 mg twice a day, and lorazepam 0.5 mg twice a day with 1 mg at bedtime and she sees neurology for regular follow up visits - Nutrition and Behavior: The caregiver notes the patient is eating too good and does not know when to stop, which has led the family to lock the refrigerator and freezer. - She has a history of aggression, which is managed with quetiapine (Seroquel) 800 mg daily, reduced from 1000 mg. - She also exhibits self-injurious behav ior, recently smacking her head with the palm of her hand, and no longer uses her Guardian helmet. - Recent Illness: About two weeks ago, s he had a cold, but is now mostly recovered. - She had some lingering congestion as s he is a mouth breather and cannot blow her own nose. - There was no associated trouble breath ing or current cough. - Health Maintenance: The patient has no t had laboratory work since February 2022. - She has never had a mammogram as she i s not able to cooperate for the procedure - her mother states that she does breast exams on the patient about once a month to make up for this - She normally receives a flu shot but d id not get one this year. - Her last tetanus shot was in 2013, torey ing her overdue for a booster. - Medication History: Her current medica tions include baby aspirin, levothyroxine 25 mcg, Depo-Provera, and the previously mentioned seizure and behavioral medications. - She has discontinued metronidazole top ical gel for acne as it was not effective, as well as an allergy nasal spray. - She was seen for her gynecology exam a few weeks ago but no formal exam was done as patient was not able to cooperate for the procedure - she has some dental procedure under sedation coming up soon and her mother was advised to speak to patient's dentist to see if they can make arrangements for her to have a gynecologic exam done by a provider at the same time while she is under sedation then [facility] Medical History (Updated 05/11/25 @ 13:06 by Mehdi Smallwood MD) Epilepsy Surveillance for Depo-Provera contraception Factor V Leiden mutation Allergic rhinitis Seizure disorder Hypothyroidism Autism Surgical History S/P tooth extraction Family History Father Factor 5 Leiden mutation, heterozygous Mother No problems noted. Maternal Grandmother Hypertension Maternal Grandfather Diabetes Paternal Uncle Cancer Maternal Grandmother Breast cancer Social History (Reviewed 05/09/25 @ 13:05 by AMARJIT Acevedo Housing: House Alcohol intake: never Patient Tobacco Use Status: Never used Tobacco Tobacco use type: Cigarette e-Cigarette/Vaping Use: Never Used Second Hand Smoke Exposure: No service: No Current occupational status: disabled Cognitive needs: No Hearing needs: No Vision needs: No Female Reproductive History Menstrual Age of Menarche: 11 Questionnaire PHQ-9 Over the last 2 weeks, how often have you been bothered by any of the following problems? 1. Little interest or pleasure in doing things: several days 2. Feeling down, depressed, or hopeless: not at all 3. Trouble falling or staying asleep, or sleeping too much: not at all 4. Feeling tired or having little energy: not at all 5. Poor appetite or overeating: nearly every day 6. Feeling bad about yourself - or that you are a failure or have let yourself or your family down: not at all 7. Trouble concentrating on things, such as reading the newspaper or watching television: not at all 8. Moving or speaking so slowly that other people could have noticed. Or the opposite - being so fidgety or restless that you have been moving around a lot more than usual: not at all 9. Thoughts that you would be better off or of hurting yourself in some way: not at all Total score: 4 Depression Screening Interpretation: Positive Depression Screening Follow-up: Existing condition and In treatment Depression Screening Done: Yes 26906 - PHQ-9 Billing: Yes Source: Developed by Drs. Valdo Dia, Cinthya Berman, Marc Chavez and colleagues, with an educational clay from [employer]. Thrive Questionnaire Date Thrive assessed: 05/09/25 I am a: Patient What is your living situation today?: I have a steady place to live Within the past 12 months, did the food you bought not last and you didn't have the money to get more?: Never true Within the past 12 months, did you worry whether your food would run out before you got money to buy more?: Never true Do you have trouble paying for medicines?: No Do you have trouble getting transportation to medical appointments?: No Do you have trouble paying your heating and electricity bill?: No Do you have trouble taking care of your child, family member or friend?: No Do you have trouble with day-to-day activities such as bathing, preparing meals, shopping, managing finances, etc.?: Yes Are you currently unemployed and looking for a job?: No Are you interested in more education?: No Please select the resources that you would like help with: None Currently or been in a relationship where the following occur: No concerns reported THRIVE Score: 0 AUDIT C Alcohol Use Questionnaire (AUDIT-C) 1. How often do you have a drink containing alcohol?: Never 3. How often do you have six or more drinks on one occasion?: Never Total Score: 0 Score Reviewed/Action Taken: Yes MERYL-7 AMB Questionnaire MERYL-7 Date MERYL - 7 assessed: 05/09/25 Feeling nervous, anxious, or on edge: 1 = Several days Not being able to stop or control worryin = Not at all Worrying too much about different things: 0 = Not at all Trouble relaxin = Several days Being so restless that it is hard to sit still: 1 = Several days Becoming easily annoyed or irritable: 1 = Several days Feeling afraid as if something awful might happen: 0 = Not at all Total MERYL-7 score (0-4 normal; 5-9 mild; 10-14 moderate; 15-21 severe): 4 Source: Developed by Drs. Valdo Dia, Cinthya Berman, Marc Chavez and colleagues, with an educational clay from [employer]. Review of Systems Narrative Information here is obtained mostly from patient's mother/guardian as patient is not able to provide pertinent information due to her cognitive and psychiatric issues and she is mostly nonverbal during her exam Const Denies chills, Denies difficulty sleeping (current Rx help her sleep well at night), Denies fatigue, Denies fever(s) and Denies headache(s) ENT Denies dysphagia, Denies dizziness, Denies headache(s), Denies neck pain, Denies odynophagia and Denies sore throat Card Denies chest pain and Denies dyspnea Resp Denies chest congestion, Denies cough and Denies dyspnea GI Denies abdominal pain, Denies constipation, Denies dysphagia, Denies heartburn, Denies diarrhea, Denies nausea, Denies odynophagia and Denies vomiting Denies nocturia and Denies dysuria Musc Denies back pain and Denies neck pain Skin/Breast Denies rash Neuro Denies dizziness and Denies headache(s) Endo Denies fatigue Physical exam (Primary Care) Vital Signs: Last Vital Signs Pulse 103 H 05/09/25 13:04 BP 116/82 05/09/25 13:04 Pulse Ox 99 05/09/25 13:04 Oxygen Delivery Method Room Air 05/09/25 13:04 BMI result Body Mass Index 29.4 Tobacco/Smoking Status: Tobacco use Status Tobacco use date assessed 05/09/25 05/09/25 13:09 Patient Tobacco Use Status Never used Tobacco 05/09/25 13:09 Tobacco use type Cigarette 05/09/25 13:09 e-Cigarette/Vaping Use Never Used 05/09/25 13:09 PHQ-9: PHQ-9 Score PHQ-9: Total score 4 05/09/25 13:47 Depression Screening Interpretation: Positive Depression Screening Follow-up: Existing condition and In treatment Thrive Assessment: Date of Thrive Assessment Date Thrive assessed 05/09/25 05/09/25 13:09 Currently or been in a relationship where the following occur: No concerns reported Advance Care Planning discussion: On file, no changes Date of discussion: 05/11/25 Who was present: Patient, mother (legal guardian), PCP Time spent: 1-15 minutes, on File Const Other: Physical exam is also limited to what patient allows due to her cognitive and psychiatric limitations General: no acute distress and alert Limitations: behavioral limitations HENMT Head: Yes normocephalic Ears: TM's normal bilaterally and EAC's normal General nose exam: Normal external nose present Eyes Eyelids: Yes eyelids normal Conjunctivae: conjunctivae normal Sclerae: sclerae normal Corneas: corneas normal Neck Neck: Yes normal visual inspection, Yes supple and No lymphadenopathy Thyroid: Thyroid normal Resp Auscultation: clear to auscultation bilaterally, no rales and no wheezes Cardio Rate: regular rate Rhythm: regular rhythm Heart sounds: no murmurs GI Palpation (GI): Soft to palpation and nontender Auscultation: normal bowel sounds Skin Rashes: no rashes Neuro Gait exam (Neuro): Normal gait present Extrem General: Yes no clubbing, cyanosis or edema Office Procedures Flu Questionnaire Does the patient have a severe egg allergy?: No Does the patient have severe life threatening allergies?: No Does the patient have a fever or illness today?: No Has the patient ever had Guillain-[place]wood Syndrome?: No Has the patient ever had any past reaction to a flu shot?: No Immunizations Fluarix [id number] (PF) 45 mcg (15 mcg x 3)/0.5 mL IM syringe Performing Provider: Mehid Smallwood MD Performing Location: [facility] Administered by: HENRIQUE Acevedo on 05/09/25 13:46 Dose Route Admin Location Dispensed Lot Number Expiration Date [place] Design Printer Balloon 0.5 mL IM Left Deltoid 0.5 mL [id number] 11/18/25 [id number] [employer] VIS Given Date VIS Provided VIS Publication Date 05/09/25 Single Vaccine 24 Eligibility Eligibility Date Funding Source Not VFC Eligible 05/09/25 Private Tenivac (PF) 5 Lf unit-2 Lf unit/0.5 mL intramuscular syringe Performing Provider: Mehdi Smallwood MD Performing Location: [facility] Administered by: HENRIQUE Acevedo on 05/09/25 13:46 Dose Route Admin Location Dispensed Lot Number Expiration Date [facility] Design Printer Balloon 0.5 mL IM Left Deltoid 0.5 mL [id number] 07/20/26 [id number] [employer] Total Dispensed Waste 0.5 mL 0 % VIS Given Date VIS Provided VIS Publication Date 05/09/25 Single Vaccine 20 Eligibility Eligibility Date Funding Source Not VFC Eligible 05/09/25 Private Coding Level of Care Code Est Pt Prev Care 40-64y(81386) Diagnoses Annual physical exam Z00.00 Nonintractable epilepsy without status epilepticus, unspecified epilepsy type G40.909 Epilepsy type: unspecified Intractability: not intractable Status epilepticus: without status epilepticus Factor V Leiden mutation D68.51 Acquired hypothyroidism E03.9 Hypothyroidism type: acquired Autism F84.0 Additional Codes PHQ-9 - 64941 - PHQ-9 Billing: Yes ([id number]) Vital Signs *Quality* - Advance Care Planning discussion: On file, no changes ([id number]) Vital Signs *Quality* - Time spent: 1-15 minutes, on File ([id number]) Assessment & Plan Assessment & Plan (1) Annual physical exam: Code(s): Z00.00 - Encounter for general adult medical examination without abnormal findings Category: Medical Plan: Check labs CEE to complete her annual exam today - patient has not had any follow up labs done since February 2022 She has never had a mammogram as she is not able to cooperate for the procedure - her mother states that she does breast exams on the patient about once a month to at least keep up with this Patient [facility] but no formal exam was done as she was not able to cooperate for the procedure - she has some dental procedure under sedation coming up soon and her mother was advised to speak to patient's dentist to see if they can make arrangements for her to have a gynecologic exam done by a provider at the same time while she is under sedation then (2) Epilepsy: Code(s): G40.909 - Epilepsy, unspecified, not intractable, without status epilepticus Category: Medical Qualifiers: Epilepsy type: unspecified Intractability: not intractable Status epilepticus: without status epilepticus Qualified Code(s): G40.909 - Epilepsy, unspecified, not intractable, without status epilepticus Plan: Controlled on her current Rx - her mother states that patient has not had a seizure episode in years now Continue Lamotrigine 200 mg twice a day, Topiramate 200 mg twice a day, and Lorazepam 0.5 mg twice a day with 1 mg at bedtime PRN Follow up with neurology as scheduled (3) Factor V Leiden mutation: Code(s): D68.51 - Activated protein C resistance Category: Medical Plan: Continue Aspirin 81 mg QD (4) Hypothyroidism: Code(s): E03.9 - Hypothyroidism, unspecified Category: Medical Qualifiers: Hypothyroidism type: acquired Qualified Code(s): E03.9 - Hypothyroi dism, unspecified Plan: Continue Levothyroxine 25 mcg QD Will send patient for labs to check her TFTs as well (5) Autism: Code(s): F84.0 - Autistic disorder Category: Medical Plan: Continue Quetiapine 400 mg BID, Lorazepam 0.5 mg BID PRN and Lorazepam 1 mg Q HS PRN Follow up with psychiatry as scheduled Plan Flu vaccine and Td booster are both given to the patient today Follow up in 6 months Orders: Orders Influenza [id number] Immunization 05/09/25 Z23 - Encounter for immunization Td Immunization 05/09/25 Z23 - Encounter for immunization Complete Blood Count Auto Diff 05/09/25 D64.9 - Anemia, unspecified, Z00.00 - Encounter for general adult medical examination without abnormal findings Lipid Panel 05/09/25 E78.00 - Pure hypercholesterolemia, unspecified, G40.909 - Epilepsy, unspecified, not intractable, without status epilepticus, Z00.00 - Encounter for general adult medical examination without abnormal findings Prothrombin Time INR 05/09/25 D68.51 - Activated protein C resistance Partial Thromboplastin Time 05/09/25 D68.51 - Activated protein C resistance Comprehensive [place]. Panel Fast 05/09/25 E78.00 - Pure hypercholesterolemia, unspecified, G40.909 - Epilepsy, unspecified, not intractable, without status epilepticus, Z00.00 - Encounter for general adult medical examination without abnormal findings Free T4 (Free Thyroxine) 05/09/25 E03.9 - Hypothyroidism, unspecified, Z00.00 - Encounter for general adult medical examination without abnormal findings Thyroid Stimulating Hormone 05/09/25 E03.9 - Hypothyroidism, unspecified, G40.909 - Epilepsy, unspecified, not intractable, without status epilepticus, Z00.00 - Encounter for general adult medical examination without abnormal findings Topiramate 05/09/25 G40.909 - Epilepsy, unspecified, not intractable, without status epilepticus, Z00.00 - Encounter for general adult medical examination without abnormal findings Lamotrigine Lamictal 05/09/25 G40.909 - Epilepsy, unspecified, not intractable, without status epilepticus, R56.9 - Unspecified convulsions, Z00.00 - Encounter for general adult medical examination without abnormal findings
--- OUTSIDE RECORDS SUMMARY | 2025-05-09 14:38 | XMS_ITS | Encounter Summary ---
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
--- OUTSIDE RECORDS SUMMARY | 2025-05-09 14:38 | XMS_ITS | Clinical Summary ---
Author Organization [facility] Address [address] [place] [phone] Phone Care Team Providers Care Automobile Insurance Claim Examiner Name Role Phone Unavailable Primary Care Provider [...]
--- OUTSIDE RECORDS SUMMARY | 2025-05-09 14:38 | XMS_ITS | Encounter Summary ---
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
== END 2025-05-09 13:48 | disposition home or self-care (01) ==
LOC: HO.HMCH 12:54
PROVIDERS: PCP Internal Medicine; Visit Provider Internal Medicine
DX: Z00.00 Encounter for general adult medical examination without abnormal findings (principal); G40.909 Epilepsy, unspecified, not intractable, without status epilepticus; D68.51 Activated protein C resistance; E03.9 Hypothyroidism, unspecified; F84.0 Autistic disorder

== ENCOUNTER → 2025-05-09 12:53 | Outpatient (BNVA) | payer OTHER, SELFPAY | PROVIDERS: PCP Internal Medicine; Visit Provider Internal Medicine | DX: Z00.00 Encounter for general adult medical examination without abnormal findings (principal); D68.51 Activated protein C resistance; E03.9 Hypothyroidism, unspecified; Z13.31 Encounter for screening for depression; Z13.39 Encounter for screening examination for other mental health and behavioral disorders; Z23 Encounter for immunization | CPT/HCPCS: 90471; 90472; 90656; 90714; 96127; 99396 ==